=== PATIENT | male | born 1985 | race Caucasian/White ===

== ENCOUNTER 2024-06-25 00:59 | Inpatient (IN) | payer BC, MEDICAID, SELFPAY ==
[2024-06-25] VITALS (90 sets, daily range): BP systolic 114–190; BP diastolic 81–132; PULSE 81–98; RESP 11–45; TEMP 36.5–36.7; O2SAT 90–100; BMI 30.8; BMI 30.3
--- OUTSIDE RECORDS SUMMARY | 2024-06-25 01:02 | XMS_ITS | Clinical Summary ---
Author Organization [facility] Address [address] [facility] [address] [place] [address] Phone Care Team Providers Care Silica Filter Operator Name Role Phone Unavailable Primary Care Provider Unavailabl e Allergies No known active allergies Medications diphenhydrAMINE (BENADRYL) 25 mg Oral tablet Take 50 mg by mouth every 6 hours as needed. Active amoxicillin (AMOXIL) 250 mg Oral capsule Take 250 mg by mouth 2 times daily. 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 Gender Identity Not on file Sexual Orientation Not on file Last Filed Vital Signs Vital Sign Reading Time Taken Comments Blood Pressure 194/106 11/09/2011 6:41 PM CDT Pulse 110 11/09/2011 6:41 PM CDT Temperature 36.4 ??C (97.5 ??F) 11/09/2011 6:33 PM CD T Respiratory Rate 20 11/09/2011 6:41 PM CDT Oxygen Saturation 98% 11/09/2011 6:41 PM CDT Inhaled Oxygen Concentration - - Weight 122.5 kg (270 lb) 11/09/2011 6:33 PM CDT Height 193 cm (6' 4 ) 11/09/2011 6:33 PM CDT Body Mass Index 32.87 11/09/2011 6:33 PM CDT Plan of Treatment Health Maintenance Due Date Last Done Comments DTAP/TDAP/TD VACCINES (1 - Tdap) 07/12/2002 HEPATITIS B VACCINES (1 of 3 - 19+ 3-dose series) 07/12/2002 INFLUENZA VACCINE (#1) 2023 HPV VACCINES Aged Out No longer eligi ble based on patient's age to complete this topic PNEUMOCOCCAL VACCINE 0-64 YEARS Aged Out No longer eligible based on patient's age to complete this topic
--- OUTSIDE RECORDS SUMMARY | 2024-06-25 01:02 | XMS_ITS | Encounter Summary ---
Author Organization [facility] Address [address] [place] [address] Care Team Providers Care Network Systems Operator Name Role Phone Unavailable Primary Care Provider Unavailabl e Encounter Details Date Type Department Care Team (Latest Contact Info) Description 03/20/1998 Outpatient Historical [facility] Family Medicine [place] [address] [facility] [address] [place] [address] Dunia Varghese NO ADDRESS ON FILE Other and unspecified noninfectious gastroenteritis and colitis(558.9) (Primary Dx) Social History Tobacco Use Types Packs/Day Years Used Date Smoking Tobacco: Never Assessed Sex and Gender Information Value Date Recorded Sex Assigned at Not on file 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
--- OUTSIDE RECORDS SUMMARY | 2024-06-25 01:02 | XMS_ITS | Encounter Summary ---
Author Organization [facility] Address [address] [place] [address] Care Team Providers Care Reconciliation Clerk Name Role Phone Unavailable Primary Care Provider Unavailabl e Encounter Details Date Type Department Care Team (Latest Contact Info) Description 10/03/[address] 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
--- OUTSIDE RECORDS SUMMARY | 2024-06-25 01:02 | XMS_ITS | Encounter Summary ---
Author Organization [facility] Address [address] [place] [address] Care Team Providers Care Trim Mounter Name Role Phone Unavailable Primary Care Provider Unavailabl e Encounter Details Date Type Department Care Team (Latest Contact Info) Description 10/14/2000 Outpatient Historical [facility] Family Medicine- [address] [place] [address] Ruperto Tavares, NO ADDRESS ON FILE Acute sinusitis, unspecified (Primary Dx) Social History Tobacco Use Types Packs/Day Years Used Date Smoking Tobacco: Never Assessed Sex and Gender Information Value Date Recorded Sex Assigned at Not on file 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
--- OUTSIDE RECORDS SUMMARY | 2024-06-25 01:02 | XMS_ITS | Continuity of Care Document ---
Author Organization [facility] Address [address] [place] [address] Phone Care Team Providers Care Investigator Cash Shortage Name Role Phone Lobo Mora MD Unavailable Unavailable Allergies, Adverse Reactions, Alerts Substance Reaction Status Criticality No Known Allergies Active No Inform ation Medications Medication Instructions Dosage Effective Dates (start - stop) Status Comments nifedipine ER 30 mg tablet,extended release take 1 tablet by oral route every day 30 MG - Active meloxicam 7.5 mg tablet take 1 tablet by oral route every day with food - Active pantoprazole 40 mg tablet,delayed release Take 1 tablet by mouth every day - Active gabapentin 800 mg tablet take 1 tablet by oral route 2 times every day 800 MG - Active Zyrtec 10 mg tablet Take 1 tablet by mouth every day as needed - Active montelukast 10 mg tablet take 1 tablet by oral route every day in the evening 10 MG - Active Nasacort 55 mcg nasal spray aerosol Inhale 2 sprays in each nostril every day - Active clobetasol 0.05 % topical cream Apply 2 times every day a thin layer to the affected area(s) - Active MINERIN CREME Apply a thin layer to the affected area(s) 3 times every day Not Available - Active Procedures Procedure Date X-RAY EXAM CHEST 2 VIEWS Rad Exam, Hip, Unilat W/pelvis 2-3 Views X-RAY EXAM, SPINE, LUMBOSACRAL, MIN 4 EWS OFFICE OUTPT EST 25 MIN 1ST COMPRE PREV MED E/M NEW PT 18-39 Mar Alcohol and/or drug screening 0 Urinalysis, Auto, w/o Scope HEMOGLOBIN; GLYCOSYLATED (A1C) 20 Advance Directives Directive Yes / No Effective Date File Name No Information Encounters Encounter Description Practice Location Reason(s) For Visit Diagnoses Date Provider Providers Copied on Encounter [facility], [address], [place], [place], [id number] , tel: [phone] [facility] No Information 1 Morgan Diamond. [address], [place], [place], [address], . tel:[phone] [facility], [address], [place], [place], [address] , tel: [phone] [facility] No Information 1 Morgan Diamond. [address], [place], [place], [address], . tel:[phone] Referring Provider: Lobo Mora, [address], [place], [address] . tel:[phone] OFFICE OUTPT EST 25 MIN [facility], [address], [place], [place], [address] , tel: [phone] [facility] hypertension (chief complaint) Body mass index (BMI) 36.0-36.9, adultHypertens ionRadiculopat hy, lumbar regionPain in left hipChronic pain syndrome 1 Morgan Diamond. [address], [place], [place], [address], . tel:[phone] [facility], [address], [place], [place], [address] , tel: [phone] [facility] No Information 1 Ira Sanchez. [address], [place], [place], [address], . tel:[phone] 1ST COMPRE PREV MED E/M NEW PT 1839 [facility], [address], [place], [place], [address] , [place] tel: [phone] [facility] est care (chief complaint) Body mass index (BMI) 38.0-38.9, adultEncntr for general adult medical exam w/o abnormal findingsTobacc o abuse counselingAtop ic dermatitisHype rtensionLow back painChronic rhinitisOther stimulant abuse, in remissionEncou nter for screening for other disorder 0 Ira Sanchez. [address], [place], [place], [address], [place]. tel:[phone] Referring Provider: Daniel miller, [address], [place], [address] . tel:[phone] Family History Family Member Type Diagnosis Age At Onset No Information Payers Payer name Insurance type Covered constitution party ID Authoriza tion(s) No Information Social History Type Description Quantity Date Captured Comments Alcohol Use Details Unknown Caffeine Use Details Unknown Tobacco Use Status Smoking Status No Information Sex Male Sexual Orientation Straight or heterosexual Mar Gender Identity Male Chief Complaint And Reason For Visit No Information Reason For Referral Reason For Referral No Information Plan Of Treatment Date Type Action Status Goal Lifestyle educat ion regarding diet completed Future Order: Radiology Order Ch est: 2 Views PA, Lat ([id number]), Ordered on: Ordered Future Order: Radiology Order L- Spine; Complete (4-5) ([id number]), Ordered on: Ordered Future Order: Radiology Order Hi p: Unilateral 2-3 Views ([id number]), Ordered on: Ordered Nutrition Recommendation Nutrition therap y completed History Of Present Illness Encounter Date Complaint History Of Prese nt Illness hypertension The HTN started in 2000. The symptoms began 20 years ago. The severity has been described as being 4. The symptoms are/last 20 Years. It is currently stable. Risk factors include male gender, obesity and smoking. Pertinent negatives include chest pain, dyspnea, irregular heartbeat/palpitations, nausea and vomiting. hypertension (comments) PMH--all ergiesstates coughs /tickling in the throatlisinopril --nasal congestion/coughing??PMH--eczema?--left hip pain for a time x 10 years--needs xraylow back pain--gabpentin x 3 years for painPMH--no surgery--ALLERGIES deniesSXHX tobacco/ no etoh quit met est care 34 yo M at [facility] here to est caremedical/surgical:GERDEczemaallergic rhinitischronic LBPHypertensionmedications:gabapentin Vistaril Singulair ZyrtecTriamcinolone nasalTriamcinolone ointmentLisinopril 20mg allergies:NKDAfamily hx:dad - diabetes, prostate cancermom - HBPsocial hx:social smoking insufflationnever IVDU Functional Status Date Functional Assessmen t No Information Instructions Date Instruction Additional Infor jennifer Lifestyle education regarding di et Related to Body mass index [BMI] 36.0-36.9, adult Clobetasol as direct edEucerin to hydrate skinZyrtec for allergies and eczema Related to Atopic dermatitis Lisinopril renewed Related to Hy pertension Gabapentin renewed Related to Lo w back pain Nasacort, zyrtec Related to 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
--- OUTSIDE RECORDS SUMMARY | 2024-06-25 01:02 | XMS_ITS | Encounter Summary ---
Author Organization [facility] Address [address] [place] [address] Care Team Providers Care Cellar Hand Name Role Phone Unavailable Primary Care Provider Unavailabl e Encounter Details Date Type Department Care Team (Latest Contact Info) Description 12/31/1998 Outpatient Historical [facility]- [address] [place] [address] Dunia Varghese NO ADDRESS ON FILE Abnormal weight gain (Primary Dx); Other and unspecified noninfectious gastroenteritis and colitis(558.9) Social History Tobacco Use Types Packs/Day Years Used Date Smoking Tobacco: Never Assessed Sex and Gender Information Value Date Recorded Sex Assigned at Not on file 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
--- OUTSIDE RECORDS SUMMARY | 2024-06-25 01:02 | XMS_ITS | Encounter Summary ---
Author Organization [facility] Address [address] [place] [address] Care Team Providers Care Assault Amphibious Vehicle Crewman Name Role Phone Unavailable Primary Care Provider Unavailabl e Encounter Details Date Type Department Care Team (Latest Contact Info) Description 05/21/2002 Outpatient Historical [facility] Medicine- [address] [id number] Lalit Anderson MD [address] [phone] ACUTE BRONCHITIS (Primary Dx) Social History Tobacco Use Types Packs/Day Years Used Date Smoking Tobacco: Never Assessed Sex and Gender Information Value Date Recorded Sex Assigned at Not on file 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
--- OUTSIDE RECORDS SUMMARY | 2024-06-25 01:02 | XMS_ITS | Encounter Summary ---
Author Organization [facility] Address [address] [place] [address] Care Team Providers Care Oncology Physician Assistant Name Role Phone Unavailable Primary Care Provider Unavailabl e Encounter Details Date Type Department Care Team (Latest Contact Info) Description 05/30/1998 Outpatient Historical [facility] [address] [facility] [address] [place] [address] Ruperto Tavares, DO NO ADDRESS ON FILE Pain in joint, lower leg (Primary Dx) Social History Tobacco Use Types Packs/Day Years Used Date Smoking Tobacco: Never Assessed Sex and Gender Information Value Date Recorded Sex Assigned at Not on file 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
--- OUTSIDE RECORDS SUMMARY | 2024-06-25 01:02 | XMS_ITS | Encounter Summary ---
Author Organization [facility] Address [address] [place] [address] Care Team Providers Care Drawer In Jacquard Loom Name Role Phone Unavailable Primary Care Provider Unavailabl e Encounter Details Date Type Department Care Team (Latest Contact Info) Description 09/06/2001 Outpatient Historical [facility] Family Medicine- [address] [place] [address] Alis Stewart MD NO ADDRESS ON FILE ACUTE PHARYNGITIS (Primary Dx); CHRONIC SINUSITIS NOS; OTITIS MEDIA NOS Social History Tobacco Use Types Packs/Day Years Used Date Smoking Tobacco: Never Assessed Sex and Gender Information Value Date Recorded Sex Assigned at Not on file 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
--- OUTSIDE RECORDS SUMMARY | 2024-06-25 01:02 | XMS_ITS | Encounter Summary ---
Author Organization [facility] Address [address] [place] [address] Care Team Providers Care Status Controller Name Role Phone Unavailable Primary Care Provider Unavailabl e Encounter Details Date Type Department Care Team (Latest Contact Info) Description 03/20/2004 Outpatient Historical [facility] [address] [place] [address] Tash Jefferson, CHRONIC DISEASE MANAGER [address] [place] [address] ACUTE SINUSITIS NOS (Primary Dx) Social History Tobacco Use Types Packs/Day Years Used Date Smoking Tobacco: Never Assessed Sex and Gender Information Value Date Recorded Sex Assigned at Not on file 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
--- NOTE | 2024-06-25 01:21 | XRR_ITS ---
PROCEDURE INFORMATION: Exam: XR Chest Exam date and time: 06/25/2024 1:25 AM Age: 38 years old Clinical indication: Dyspnea and shortness of breath; SOB with dyspnea. On bipap. History of chf. TECHNIQUE: Imaging protocol: Radiologic exam of the chest. Views: 1 view. COMPARISON: No relevant prior studies available. FINDINGS: Lungs: Focal infiltrate within the bilateral lower lobes and within the inferior aspect of the right upper lobe. Partial silhouetting of the bilateral hemidiaphragms. Pleural spaces: Unremarkable. No pleural effusion. No pneumothorax. Heart/Mediastinum: Heart normal or upper normal in size when accounting for portable technique. Bones/joints: Unremarkable. XR/XR chest 1V portable [id number] IMPRESSION: Multifocal pneumonia favored over CHF.
--- NOTE | 2024-06-25 01:21 | USCV_ITS ---
Yaron Osborn Age: 38 Gender: M : 1985 Exam Date: 06/25/2024 10:03 Ordering Phys: Edson Fonseca MD Technologist: Exam Location: [facility] Indication: CHF BP: 146 / 1 HR: 90 Rhythm: Sinus Technical Quality: Adequate MEASUREMENTS (Male / Female) Normal Values 2D ECHO LV Diastolic Diameter PLAX 5.9 cm 4.2 - 5.9 / 3.9 - 5.3 cm IVS Diastolic Thickness 1.7 cm 0.6 - 1.0 / 0.6 - 0.9 cm IVS Systolic Thickness 2.1 cm LVPW Diastolic Thickness 1.8 cm 0.6 - 1.0 / 0.6 - 0.9 cm LVPW Systolic Thickness 2.1 cm LVOT Diameter 2.2 cm LV Ejection Fraction 2D Teich 39.8 % LV Ejection Fraction MOD 4C 34.6 % LV Ejection Fraction MOD 2C 53.6 % LV Ejection Fraction 2C AL 54.1 % LA Diameter 4.8 cm RA Systolic Volume 4C AL 137.6 ml RA Systolic Volume 4C MOD 120.8 ml Aorta at Sinotubular Diameter 2.9 cm M-MODE LA Ao Ratio MM 1.6 AV Cusp Separation MM 2.1 cm DOPPLER AV Peak Velocity 112.0 cm/s LVOT Peak Velocity 77.0 cm/s AV Area Cont Eq vti 3.0 cm squared AV Area Cont Eq pk 2.7 cm squared MV Peak Velocity 109.0 cm/s TR Peak Velocity 264.0 cm/s TR Peak Gradient 27.9 mmHg TV Peak E Velocity 99.0 cm/s PV Peak Velocity 91.0 cm/s FINDINGS Left Ventricle Moderately increased left ventricular cavity size. Severely decreased left ventricular systolic function. Left ventricular ejection fraction is estimated at 35 %. Global left ventricular hypokinesis. Right Ventricle The right ventricle is normal in size and function. Right Atrium Moderately increased right atrial size. Left Atrium Moderately increased left atrial size. Mitral Valve Mildly thickened mitral valve. No mitral valve stenosis. Moderate mitral valve regurgitation. Aortic Valve Mild aortic valve calcification. No aortic valve stenosis. Trace aortic valve regurgitation. Tricuspid Valve Moderate tricuspid valve regurgitation. Pulmonic Valve Structurally normal pulmonic valve without significant stenosis. There is no pulmonic regurgitation. Pericardium Normal pericardium without effusion. Aorta Normal ascending aorta dimension. IVC Inferior vena cava not visualized. CONCLUSIONS Moderately increased left ventricular cavity size. Severely decreased left ventricular systolic function. Left ventricular ejection fraction is estimated at 35 %. Global left ventricular hypokinesis. Moderately increased right atrial size. Moderately increased left atrial size. Mildly thickened mitral valve. No mitral valve stenosis. Moderate mitral valve regurgitation. Mild aortic valve calcification. No aortic valve stenosis. Trace aortic valve regurgitation. Moderate tricuspid valve regurgitation. There is no pericardial effusion. Alaina Barrios MD (Electronically Signed) Final Date: 25 June 2024 20:17 S
--- NOTE | 2024-06-25 01:22 | P.HP_ITS ---
Providers/Chief Complaint Admitting Physician: Edsno Fonseca MD Primary Care Provider: Arun Tracy Chief Complaint: Chf Hypertension Emergency History of Present Illness Yaron Osborn is a 38 year old male with a past medical history significant for hypertension who presented to an outside emergency department complaining of shortness of breath x 2 weeks. Patient reports he was in his usual state of health until about 2 weeks ago when he developed upper respiratory infection/sinusitis. He states at that time he figured the symptoms to be transient passes atypically do. He states since that time he has noticed progressive swelling of his lower extremities, abdominal distention, worsening shortness of breath, orthopnea with inability to lay flat, and paroxysmal nocturnal dyspnea. Exertion worsens symptoms. Rest improves. He denies any prior history of similar symptoms. He denies any past history of congestive heart failure. States his only medical conditions been hypertension for which he takes lisinopril 40 mg daily. He does note his father had a problem with one of his cardiac valves that required replacement. He also notes that his mother had a history of heart trouble as well as hypertension. He was found to be markedly hypertensive and tachycardic. Reported blood pressures around 230s over 120 mmHg and heart rate around 150. Workup at the outside emergency department revealed a proBNP elevated at 19,957 pg/mL (upper limit of normal 125 pg/mL). Troponin T was mildly elevated to 55 ng/L. Chest x-ray showed findings consistent with congestive heart failure with pulmonary edema. CT abdomen pelvis with contrast showed moderate ascites, generalized anasarca, 2.2 cm stellate density in the right lung and small right pleural effusion. He was started on IV Lasix and labetalol drip. Upon presentation to [facility] ICU, patient is awake and alert. Blood pressure has since improved from the outside hospital. He is no longer on any drips. Discussed plan of care and patient is in agreement. Review of Systems Narrative: A complete review of systems was obtained and is negative except as stated in HPI. Medications/Allergies Allergies Allergy/AdvReac Type Severity Reaction Status Date / Time No Known Allergies Allergy Verified 06/25/24 01:07 PFSH Acute PFSH: Medical History Alcohol use disorder Alcohol use disorder Tobacco use disorder Hypertension Surgical History No pertinent past surgical history Family History Father Valvular heart disease Mother Heart disease Hypertension Social History Smoking and tobacco/nicotine status: current every day tobacco/nicotine user Quit status (tobacco/nicotine): has tried quititng Alcohol intake: current Substance/Drug Use: never Vitals/I&O/Wt Weight last 48 hrs Weight 112 kg Physical Exam Narrative: General: Patient is awake and alert. Pleasant. Conversational. Head: Normocephalic. Atraumatic. EOM intact. Neck: Slightly elevated JVD. Cardiovascular: RRR. No gallops. No murmurs. 1-2+ bilateral lower extremity edema right worse than left. Lungs: Breath sounds are slightly diminished bilateral bases. There is very faint dependent crackle. On room air. No respiratory distress. Skin: No jaundice. No rashes. Abdomen: Normal bowel sounds, abdomen soft and nontender. Genito Urinary: Genital exam not performed since complaints not related. Rectal: Rectal exam not performed since no symptoms indicated blood loss. Extremities: No cyanosis or clubbing. Musculoskeletal: No swollen or erythematous joints. Neurological: Moves all 4 extremities. No myoclonus. A&P Assessment and plan (1) Elevated brain natriuretic peptide (BNP) level: Suspected congestive heart failure with anasarca, ascites, pleural effusion NT proBNP markedly elevated in the setting of pulmonary edema and fluid overload consistent with acute heart failure Complete echocardiogram ordered to further delineate type of heart failure Patient had transient infectious symptoms 2 weeks ago, query pericarditis, myopericarditis, etc Will likely need cardiology evaluation Received IV Lasix prior to transfer, he will likely need ongoing diuresis Continuous telemetry monitoring Strict I's and O's Daily weights (2) Elevated troponin: Troponin mildly elevated at outside hospital Repeat troponin with series Suspect related to troponin leak from congestive heart failure Continuous telemetry monitoring Echo as above (3) Pulmonary edema: Flash pulmonary edema secondary to hypertension / chf Symptoms seem improved from report from outside hospital Repeat chest x-ray (4) Tobacco use disorder: Patient encouraged to consider smoking cessation Nicotine patch ordered (5) Hypertension: Patient takes lisinopril 40 mg daily His blood pressure is currently normal after being treated at the outside hospital Will hold CLARITA inhibitor while awaiting echo Will plan to reinitiate antihypertensives if blood pressure starts to increase today (6) Alcohol use disorder: Patient reports daily beer drinking without history of withdrawal Monitor for evidence of withdrawal and if such exists, will start CIWA Plan DVT prophylaxis: Lovenox CODE STATUS code: Full code PDMP PDMP Reviewed: Not Reviewed Attestations Medical Necessity Statement*: Patient transfers to the intensive care unit from outside emergency department after presenting with shortness of breath, found to have acute pulmonary edema, severe tachycardia, severe hypertension and suspected new congestive heart failu re with expected hospitalization to cross 2 midnights for titration of heart rate medications, titration of blood pressure medications, diuresis, further workup, echo, telemetry and probable cardiology evaluation. Coding Level of Care Code Acute Code for Chg Fwd Diagnoses Elevated brain natriuretic peptide (BNP) level R79.89 Elevated troponin R79.89 Pulmonary edema J81.1 Tobacco use disorder F17.200 Hypertension I10 Alcohol use disorder F10.90
[2024-06-25 01:59] LABS: Basophils # 0.1 10^3/uL (0.0-0.1); Basophils % 1.1 %; Eosinophils # 0.3 10^3/uL (0.0-0.8); Eosinophils % 3.8 %; Hematocrit 39.3 % (37-53); Lymphocytes # 1.7 10^3/uL (0.8-4.8); Lymphocytes % 21.3 %; Mean Corpuscular HGB Conc 31.8 g/dL (30-55); Mean Corpuscular Hemoglobin 30.7 pg (27-33); Mean Corpuscular Volume 96.6 fl (82-101); Mean Platelet Volume 10.4 fL (7.4-10.4); Monocytes # 0.8 10^3/uL (0.2-0.9); Monocytes % 10.2 %; Neutrophils # 5.07 10^3/uL (1.8-7.7); Neutrophils % 63.5 %; Nucleated Red Blood Cells % 0 %; Platelet Count 257 10^3/cmm (157-399); Red Blood Count 4.07 10^6/uL (3.85-5.65); Red Cell Distribution Width 13.6 % (12.1-15.1); White Blood Count 7.98 10^3/uL (3.29-11.43)
[2024-06-25 02:20] LABS: Troponin T (5th) Once 69 ng/L (0-15)
[2024-06-25 02:26] LABS: NT Pro B Type Natriuretic Pept 21651 pg/mL (0-125); Procalcitonin 0.08 ng/mL (0-0.5); Thyroid Stimulating Hormone 4.13 uIU/mL (0.27-4.20)
[2024-06-25 02:38] LABS: Alanine Aminotransferase 42 U/L (0-41); Albumin Level 3.3 g/dL (3.5-5.2); Alkaline Phosphatase 81 U/L (40-130); Anion Gap 15.9 (5-19); Aspartate Amino Transferase 18 U/L (0-40); Blood Urea Nitrogen 16 mg/dL (6-20); C Reactive Protein 4.8 mg/L (0.0-4.9); Calcium 8.6 mg/dL (8.5-10.5); Carbon Dioxide 25 mmol/L (22-29); Chloride 99 mmol/L (98-107); Creatinine Clr Calc Pharmacy 110.5324; Globulin 2.5 g/dL (1.3-4.6); Glomerular Filtration Rate 67.1 mL/min (90-130); Glucose 82 mg/dL (65-115); Magnesium 2.1 mg/dL (1.7-2.3); Osmolality Calculated 282 mOsm/kg (285-295); Phosphorus 4.1 mg/dL (2.5-4.5); Potassium 3.9 mmol/L (3.5-5.1); Sodium 136 mmol/L (136-145); Total Bilirubin 0.8 mg/dL (0.15-1.2); Total Protein 5.8 g/dL (6.6-8.7)
[2024-06-25 03:01] LABS: Bilirubin Urine Negative (Negative); Blood Urine Negative (Negative); Glucose Urine UA Negative (Normal); Ketones Urine Negative (Negative); Leukocyte Esterase Urine Negative (Negative); Nitrate Urine Negative (Negative); Protein Urine 2+ (Negative); Urine Appearance Clear (CLEAR); Urine Color Yellow (Yellow); pH Urine 6.5 (5-7)
[2024-06-25 03:06] LABS: Add Urine Microscopic? YES; Bacteria Urine None Seen /hpf; Hyaline Casts Urine 3.71 /lpf; RBC Urine 0-2 /hpf (0-2); Squamous Epithelial Cell Urine 0-5 /hpf (0-5); WBC Urine 0-5 /hpf (0-5)
[2024-06-25 03:09] LABS: Amphetamines Screen Urine Negative (Negative); Barbiturates Screen Urine Negative (Negative); Benzodiazepines Screen Urine Negative (Negative); Cocaine Screen Urine Negative (Negative); Opiate Screen Urine Negative (Negative); PCP Screen Urine Negative (Negative); THC Screen Urine Negative (Negative)
[2024-06-25 03:14] LABS: Specific Gravity, Urine 1.031 (1.005-1.030)
[2024-06-25] MEDS: lisinopril 20 mg Tablet PO ×2 (05:06→17:15)
[2024-06-25] MEDS: FUROsemide 10 mg/mL SDV 4mL 40 MG IVP ×2 (05:06→17:15)
[2024-06-25] MEDS: nicotine 21 mg Patch 1 PATCH TRANSDERMA (08:09)
[2024-06-25] MEDS: metoprolol tartrate 25 mg Tablet PO ×2 (08:42→20:03)
--- NOTE | 2024-06-25 08:54 | ECG_ITS ---
[facility] Test Date: 2024-06-25 Pat Name: Yaron Osborn Department: Room: [facility] Gender: Male [place]: : 1985 Requested By: Jun Izaguirre Order Number: [id number] Torsten MD: Silvestre Wilkerson M.D. Measurements Intervals [place] Rate: 88 P: 39 WI: 196 QRS: 38 QRSD: 99 T: 54 QT: 399 QTc: 484 Interpretive Statements SINUS RHYTHM LEFT ATRIAL ENLARGEMENT [-0.15mV P-WAVE IN V1/V2] No previous ECG available for comparison Electronically Signed On 06-25-2024 11:21:30 [employer] by Silvestre Wilkerson M.D. [email or web address]
[2024-06-25 11:36] LABS: Troponin(5th) Baseline 63 ng/L (0-15)
[2024-06-25] MEDS: thiamine 100 mg/mL 2mL SDV IM (13:09)
[2024-06-25] MEDS: acetaminophen 325 mg Tablet 650 MG PO (13:12)
[2024-06-25 13:36] LABS: Troponin 5 2HR 61.52 ng/L (0-15)
[2024-06-25 13:37] LABS: Troponin 5 2HR Delta -1.48 ABS# (0-10)
[2024-06-25] MEDS: morphine 4 mg/mL SDV 1 mL 2 MG IVP (14:06)
--- NOTE | 2024-06-25 16:15 | P.PN_ITS ---
Subjective 2 Subjective: Patient was seen this morning, he does report a family history of CHF and CAD he reports that his father had a valve replacement and 10 years after it was replaced, does report alcoholism, daily alcohol use, up to a pack of beer a day, does report methamphetamine use the last use was 3 weeks ago reports shortness of breath, shortness of breath with exertion orthopnea paroxysmal nocturnal dyspnea, no chest pain Vitals/I&O/Wt Last Vital Signs Temp 98.0 F 06/25/24 08:00 Pulse 89 06/25/24 16:00 Resp 25 H 06/25/24 16:00 BP 159/122 06/25/24 16:00 Pulse Ox 95 06/25/24 16:00 O2 Del Method Room Air 06/25/24 16:00 06/25/24 06/25/24 06/25/24 06:59 14:59 22:59 Intake Total 360 / 360 480 / 480 Output Total 1200 / 1200 1450 / 1450 Balance -840 / -840 -970 / -970 Weight last 48 hrs Weight 110 kg Weight 110 kg Weight 112 kg Physical Exam 2 Const: COMMON NORMALS: no acute distress and patient oriented x3 Resp: COMMON NORMALS: normal respiratory effort, No retractions and No use of accessory muscles AUSCULTATION: crackles and wheezes Cardio: COMMON NORMALS: regular rate, regular rhythm, S1 normal heart sound present and S2 normal heart sound present RATE: regular rate RHYTHM: r egular rhythm HEART SOUNDS: S1 normal heart sound present and S2 normal heart sound present GI: COMMON NORMALS: Normal to inspection, nondistended, normoactive bowel sounds present and non-tender Extremity: COMMON NORMALS: no pedal edema Neuro: COMMON NORMALS: patient oriented x3 and CN's II-XII intact bilaterally Psych: COMMON NORMALS: mental status grossly normal Data 06/25/24 01:39 06/25/24 01:39 Micro: Microbiology 06/25/24 05:00 Gram Stain - Final Sputum - Expectorated Sputum 06/25/24 02:30 Bacterial Antigens - Final Urine,Voided A&P Assessment and plan (1) Elevated brain natriuretic peptide (BNP) level: Concerning for new onset heart failure Etiology unclear History of alcoholism History of methamphetamine abuse With anasarca, ascites, pleural effusions, elevated BNP Cardiac echo ordered Lasix 40 mg IV Monitor creatinine monitor potassium (2) Elevated troponin: Aspirin, statin Cardiology consulted (3) Pulmonary edema: Secondary to new onset CHF (4) Tobacco use disorder: Patient encouraged to consider smoking cessation Nicotine patch ordered (5) Hypertension: Lisinopril 20 twice daily Metoprolol 25 twice daily (6) Alcohol use disorder: CIWA protocol (7) Hypertensive urgency: Plan DVT prophylaxis: Lovenox CODE STATUS code: Full code PDMP PDMP Reviewed: Not Reviewed Attestations 2 Medical Necessity Statement*: Patient requires hospitalization for new onset heart failure, requiring IV diuresis, cardiology consultation Diagnoses Elevated brain natriuretic peptide (BNP) level R79.89 Elevated troponin R79.89 Pulmonary edema J81.1 Tobacco use disorder F17.200 Hypertension I10 Alcohol use disorder F10.90 Hypertensive urgency I16.0
--- NOTE | 2024-06-25 16:50 | P.CONIM_ITS ---
<Statement entered by Alaina Barrios MD - 06/25/24 19:18> Patient was evaluated and cared for in conjunction with an advanced practice practitioner. I personally examined the patient and reviewed the chart and all pertinent data including imaging, telemetry, and laboratory results. I discussed the patient in detail with the advanced practice practitioner. Please see their note for complete H&P testing result and agreed upon plan of care for the patient. 38-year-old male past medical history significant for continuous tobacco abuse, alcohol use on daily basis for the past few weeks has been noticing worsening of shortness of breath later developed PND orthopnea increased abdominal girth and noted to have systolic blood pressure around 190 therefore decided to go to outside hospital where he was noted to have possible ascites and pulmonary edema on x-ray and CT scan. There is reason patient has been transferred to [facility]. Cardiac markers were also elevated. Denies any chest pain categorically. GENERAL: Patient is alert, awake and oriented x3. HEART: Regular S1 and S2. No murmur, rub or gallop. LUNGS: Inspiratory crackles bilaterally. Abdomen: Mildly distended but soft nontender CENTRAL NERVOUS SYSTEM: Grossly nonfocal. EXTREMITIES: Lower extremities with trace edema bilaterally. Assessment and plan New onset of heart failure unspecified Ascites: May need to rule out liver cirrhosis could be cardiac Hypertension uncontrolled Tobacco abuse Alcohol abuse IV Lasix 40 mg twice daily with goal of 1 to 1.5 L negative per day and electrolyte replacement Will optimize medication to control the blood pressure. Echocardiogram to assess LV function Once euvolemic we will proceed with ischemic workup left heart cath versus stress test depending upon echo result Liver ultrasound to rule out cirrhosis Further plan will be devised as per progress note patient Providers/Reason For Consult 2 Consulting Physician/Specialty*: Alaina Barrios MD Reason for Consult*: New onset congestive heart failure Requesting Physician: Dr. Izaguirre Attending Physician: Jun Izaguirre MD Primary Care Provider: Sabra Arriola History of Present Illness History of Present Illness Yaron Osborn is a 38 year old male who is a transfer from [facility] for CHF exacerbation. Patient states he does not have much of a health history but does not go to the doctor. He does smoke every day. He does have a history of alcohol use. He stated about 1 month ago he started having some what he thought was respiratory symptoms. He treated himself with [id number] cold medications and it did not get better. He states that he also developed swelling in his lower extremities. He also noticed swelling in his abdomen as well. Chest x-ray here showed multifocal pneumonia favored over CHF. Heart size was upper normal. He also complained of orthopnea and shortness of breath on exertion. Denied any chest pain at that time or history of chest pain. He states he does have a father with a history of possible coronary artery disease. At the other facility he was put on a Lasix drip and labetalol drip for elevated blood pressure and CHF exacerbation. proBNP currently is 21,651. Troponin slightly elevated at 63?61.52. EKG with no acute ST or T wave abnormalities however there are Q waves seen in septal leads. Current creatinine is stable at 1.2. He has had -181 0 over 24 hours and has received Lasix IV 40 mg. He had a CT abdomen pelvis with contrast at another facility that showed moderate ascites generalized anasarca and a satellite density 2.2 cm in the right lung with small right pleural effusion. Currently blood pressure is 159/122 heart rate 89. He denies any chest pain at this time. Still reports a slight dry cough and slight orthopnea but it is much improved. Review of Systems 2 Narrative: Consitutional: denies fever, chills, body aches, or changes in appetite, denies abnormal weight loss Eyes: Denies changes in vision Card: Denies chest pain, palpitations, irregular heart rhythm, edema, syncope, shortness of breath, orthopnea, leg pain with exertion Resp: Reports shortness of breath on exertion, reports slight orthopnea but improved, denies hemoptysis, denies cough GI: denies abdominal pain, denies nausea or voimting, denies blood in stool : denies blood in urine, denies dysuria Musc: Denies extremity pain, denies limited range of motion or recent injury Skin: Denies rash, lesions, or wounds, denies changes to skin color Neuro: Denies nubmness in extremities, h/a, s/s of stroke [place]be: Denies easy bruiding/bleeding Medications/Allergies Home Medications ?Medication ?Instructions ?Recorded ?Confirmed ?Last Taken ?Type lisinopril 20 mg tablet 40 mg PO DAILY 06/25/2406/0906/24/24 History Allergies Allergy/AdvReac Type Severity Reaction Status Date / Time No Known Allergies Allergy Verified 06/25/24 01:07 Current Medications Generic Name Dose Route Start Last Admin Trade Name Gareth PRN Reason Stop Dose Admin Acetaminophen 650 mg 06/25/24 01:16 06/25/24 13:12 Acetaminophen 325 Mg Tablet PO 650 mg Q6H PRN Administration Mild/Mod Pain Or Temp >/= 101 Metoprolol Tartrate 25 mg 06/25/24 09:00 06/25/24 08:42 Metoprolol Tartrate 25 Mg Tablet PO 25 mg BID@0900,2100 THEODORE Administration Morphine Sulfate 2 mg 06/25/24 13:16 06/25/24 14:06 Morphine 4 Mg/Ml Sdv 1 Ml IVP 2 mg Q4H PRN Administration SEVERE PAIN Nicotine 1 patch 06/25/24 09:00 06/25/24 08:09 Nicotine 21 Mg Patch TRANSDERMA 1 patch DAILY THEODORE Administration PFSH Acute 2 PFSH: Medical History Alcohol use disorder Alcohol use disorder Tobacco use disorder Hypertension Surgical History No pertinent past surgical history Family History Father Valvular heart disease Mother Heart disease Hypertension Social History Smoking and tobacco/nicotine status: current every day tobacco/nicotine user Quit status (tobacco/nicotine): has tried quititng Alcohol intake: current Substance/Drug Use: never Vitals/I&O/Wt Last Vital Signs Temp 98.0 F 06/25/24 08:00 Pulse 89 06/25/24 16:00 Resp 25 H 06/25/24 16:00 BP 159/122 06/25/24 16:00 Pulse Ox 95 06/25/24 16:00 O2 Del Method Room Air 06/25/24 16:00 06/25/24 06/25/24 06/25/24 06:59 14:59 22:59 Intake Total 360 / 360 480 / 480 Output Total 1200 / 1200 1450 / 1450 Balance -840 / -840 -970 / -970 Weight last 48 hrs Weight 242 lb 8.136 oz Weight 242 lb 8.136 oz Weight 246 lb 14.684 oz Physical Exam 2 Narrative: General: No apparent distress, healthy appearing, well nourished HENMT: normoceophalic Neck: No carotid bruit bilaterally Muskuloskeletal: Full ROM Respiratory: Normal respiratory effort, upper lobes are clear but bilateral lower lobes are coarse with a left lower lobe being worse s, no use of accessory muscles Cardio: No JVD, regular rate, regular rhythm, S1 S2 normal, no murmurs, peripheral pulses 2+ radial palpated bilaterally GI: large, slightly distended abdomen Extremities: Full ROM, normal, normal capillary refill, no cyanosis or edema Neuro: Alert and oriented x4, no focal motor deficits Psych: Affect normal, denies suicidal ideation, mental status grossly normal Skin: No rashes or lesions noted, no wounds Data 06/25/24 01:39 06/25/24 01:39 Micro: Microbiology 06/25/24 05:00 Gram Stain - Final Sputum - Expectorated Sputum 06/25/24 02:30 Bacterial Antigens - Final Urine,Voided A&P Assessment and plan (1) Hypertension: (2) Elevated brain natriuretic peptide (BNP) level: (3) Elevated troponin: (4) Hypertensive urgency: (5) Tobacco use disorder: (6) Alcohol use disorder: (7) Pulmonary edema: Plan At this time patient seems to improved from a heart failure standpoint but still has some orthopnea. Recommend starting Lasix 40 twice daily IV. We will add potassium to this as well. Monitor creatinine closely and response to therapy. We will read echo. If his ejection fraction is reduced, he may require cardiac cath in the future but at this time he is still having some slight orthopnea. We will need to diurese him for at least a day or so to prep him for this if necessary. We will start goal-directed medical therapy if indicated. At this time, further recommendations to be made after echocardiogram. Thank you, Dr. Izaguirre, for allowing us to care for this very pleasant gentleman. PDMP PDMP Reviewed: Not Reviewed Coding Level of Care Code Acute Code for Chg Fwd Diagnoses Hypertension I10 Elevated brain natriuretic peptide (BNP) level R79.89 Elevated troponin R79.89 Hypertensive urgency I16.0 Tobacco use disorder F17.200 Alcohol use disorder F10.90 Pulmonary edema J81.1
[2024-06-25 17:00] LABS: Troponin 5 6HR 65.14 ng/L (0-15); Troponin 5 6HR Delta 2.14 ng/L (0-12)
[2024-06-25] MEDS: potassium chloride ER 20 mEq Tablet PO (17:15)
[2024-06-25] MEDS: aspirin 81 mg EC Tablet PO (17:15)
[2024-06-25] MEDS: atorvastatin 40 mg Tablet PO (20:03)
[2024-06-25] MEDS: enoxaparin 40 mg/0.4 mL Syringe SUBCUT (20:03)
[2024-06-25] MEDS: hyDRALAzine 20 mg/mL INJ 1 mL 10 MG IVP (23:01)
[2024-06-26] VITALS (49 sets, daily range): BP systolic 141–183; BP diastolic 85–125; PULSE 87–109; RESP 6–40; TEMP 36.6–37.1; O2SAT 93–100; BMI 29.5
[2024-06-26] MEDS: lisinopril 20 mg Tablet PO ×2 (03:06→17:31)
[2024-06-26] MEDS: FUROsemide 10 mg/mL SDV 4mL 40 MG IVP ×2 (04:04→17:31)
[2024-06-26] MEDS: hyDRALAzine 20 mg/mL INJ 1 mL 10 MG IVP (04:07)
[2024-06-26 04:08] LABS: Basophils # 0.1 10^3/uL (0.0-0.1); Basophils % 1.3 %; Eosinophils # 0.4 10^3/uL (0.0-0.8); Eosinophils % 4.4 %; Hematocrit 39.1 % (37-53); Lymphocytes # 1.9 10^3/uL (0.8-4.8); Lymphocytes % 21.4 %; Mean Corpuscular Hemoglobin 30.3 pg (27-33); Mean Corpuscular Volume 94.9 fl (82-101); Mean Platelet Volume 10.8 fL (7.4-10.4); Monocytes # 0.9 10^3/uL (0.2-0.9); Monocytes % 10.5 %; Neutrophils # 5.42 10^3/uL (1.8-7.7); Neutrophils % 62.1 %; Nucleated Red Blood Cells % 0 %; Platelet Count 249 10^3/cmm (157-399); Red Blood Count 4.12 10^6/uL (3.85-5.65); Red Cell Distribution Width 13.5 % (12.1-15.1); White Blood Count 8.73 10^3/uL (3.29-11.43)
[2024-06-26 04:32] LABS: Alanine Aminotransferase 34 U/L (0-41); Albumin Level 3.3 g/dL (3.5-5.2); Alkaline Phosphatase 79 U/L (40-130); Anion Gap 16.2 (5-19); Aspartate Amino Transferase 18 U/L (0-40); Blood Urea Nitrogen 20 mg/dL (6-20); Calcium 8.7 mg/dL (8.5-10.5); Carbon Dioxide 26 mmol/L (22-29); Chloride 98 mmol/L (98-107); Creatinine Clr Calc Pharmacy 101.1752; Globulin 2.8 g/dL (1.3-4.6); Glomerular Filtration Rate 61.1 mL/min (90-130); Glucose 83 mg/dL (65-115); Osmolality Calculated 284 mOsm/kg (285-295); Potassium 4.2 mmol/L (3.5-5.1); Sodium 136 mmol/L (136-145); Total Bilirubin 0.9 mg/dL (0.15-1.2); Total Protein 6.1 g/dL (6.6-8.7)
[2024-06-26 04:37] LABS: NT Pro B Type Natriuretic Pept 9116 pg/mL (0-125)
[2024-06-26] MEDS: nicotine 21 mg Patch 1 PATCH TRANSDERMA (08:24)
[2024-06-26] MEDS: thiamine 100 mg Tablet PO (08:24)
[2024-06-26] MEDS: folic acid 1 mg Tablet PO (08:24)
[2024-06-26] MEDS: multivitamin therapeutic Tablet 1 TAB PO (08:24)
[2024-06-26] MEDS: aspirin 81 mg EC Tablet PO (08:24)
[2024-06-26] MEDS: potassium chloride ER 20 mEq Tablet PO ×2 (08:24→17:31)
[2024-06-26] MEDS: metoprolol tartrate 25 mg Tablet PO ×2 (08:25→21:07)
--- NOTE | 2024-06-26 13:47 | P.PN_ITS ---
Subjective 2 Subjective: Patient was seen this morning, alert oriented x 3, following all commands, his breathing has improved, he is still unable to completely lie flat, Vitals/I&O/Wt Last Vital Signs Temp 98.8 F 06/26/24 09:00 Pulse 94 06/26/24 12:00 Resp 26 H 06/26/24 12:00 BP 161/109 06/26/24 12:00 Pulse Ox 100 06/26/24 12:00 O2 Del Method Room Air 06/26/24 12:00 06/25/24 06/26/24 06/26/24 22:59 06:59 14:59 Intake Total 960 / 1440 1160 / 1160 Output Total 2875 / 4325 2625 / 6950 3100 / 3100 Balance -1915 / -2885 -2625 / -5510 -1940 / -1940 Weight last 48 hrs Weight 107 kg Weight 107 kg Weight 110 kg Weight 110 kg Weight 112 kg Physical Exam 2 Const: COMMON NORMALS: no acute distress and patient oriented x3 Resp: COMMON NORMALS: normal respiratory effort, No retractions, No use of accessory muscles and clear to auscultation bilaterally AUSCULTATION: clear to auscultation bilaterally Cardio: COMMON NORMALS: regular rate, regular rhythm, S1 normal heart sound present and S2 normal heart sound present RATE: regular rate RHYTHM: r egular rhythm HEART SOUNDS: S1 normal heart sound present and S2 normal heart sound present GI: COMMON NORMALS: Normal to inspection, nondistended, normoactive bowel sounds present and non-tender Extremity: COMMON NORMALS: no pedal edema Neuro: COMMON NORMALS: patient oriented x3 Psych: COMMON NORMALS: mental status grossly normal Data 06/26/24 03:07 06/26/24 03:07 Micro: Microbiology 06/25/24 05:00 Gram Stain - Final Sputum - Expectorated Sputum Sputum Culture - Preliminary 06/25/24 02:30 Bacterial Antigens - Final Urine,Voided A&P Assessment and plan (1) Elevated brain natriuretic peptide (BNP) level: Concerning for new onset heart failure, systolic CHF CONCLUSIONS Moderately increased left ventricular cavity size. Severely decreased left ventricular systolic function. Left ventricular ejection fraction is estimated at 35 %. Global left ventricular hypokinesis. Moderately increased right atrial size. Moderately increased left atrial size. Mildly thickened mitral valve. No mitral valve stenosis. Moderate mitral valve regurgitation. Mild aortic valve calcification. No aortic valve stenosis. Trace aortic valve regurgitation. Moderate tricuspid valve regurgitation. There is no pericardial effusion. Etiology unclear History of alcoholism History of methamphetamine abuse Possible ischemic cardiomyopathy With anasarca, ascites, pleural effusions, elevated BNP Lasix 40 mg IV Monitor creatinine, monitor potassium Cardiology consulted for consideration of possible coronary angiogram (2) Elevated troponin: Aspirin, statin Cardiology consulted (3) Pulmonary edema: Secondary to new onset CHF (4) Tobacco use disorder: Patient encouraged to consider smoking cessation Nicotine patch ordered (5) Hypertension: Lisinopril 20 twice daily Metoprolol 25 twice daily (6) Alcohol use disorder: CIWA protocol (7) Hypertensive urgency: (8) Acute systolic CHF (congestive heart failure): Plan DVT prophylaxis: Lovenox CODE STATUS code: Full code PDMP PDMP Reviewed: Not Reviewed Attestations 2 Medical Necessity Statement*: Patient requires hospitalization for acute systolic CHF requiring IV diuresis, cardiology consultation concern for ischemic cardiomyopathy consideration of cardiac cath Diagnoses Elevated brain natriuretic peptide (BNP) level R79.89 Elevated troponin R79.89 Pulmonary edema J81.1 Tobacco use disorder F17.200 Hypertension I10 Alcohol use disorder F10.90 Hypertensive urgency I16.0 Acute systolic CHF (congestive heart failure) I50.21
--- NOTE | 2024-06-26 14:55 | P.PN_ITS ---
<Statement entered by Bear Patricio M.D - 06/26/24 23:46> Patient was evaluated and cared for in conjunction with an advanced practice practitioner. I personally examined the patient and reviewed the chart and all pertinent data including imaging, telemetry, and laboratory results. I discussed the patient in detail with the advanced practice practitioner. Please see their note for complete progress note, results and agreed upon plan of care for the patient. Patient feeling better. Shortness of breath has improved significantly. GENERAL: Patient is alert and oriented HEART: Regular S1 and S2 LUNGS: Diminished air entry bilaterally EXTREMITIES: Lower extremities with no edema 1) Congestive heart failure 2) Hypertensive urgency 3) Troponin elevation Continue diuresis. Close I and Os. NPO past midnight. If renal function is stable, plan for coronary angigoram in the AM as has significant LV dysfucntion Subjective 2 Subjective: Patient states he is doing much better today. He is -5710 L over 24 hours. Creatinine slightly increased at 1.3. Vitals/I&O/Wt Last Vital Signs Temp 98.8 F 06/26/24 09:00 Pulse 102 H 06/26/24 14:00 Resp 6 L 06/26/24 14:00 BP 144/87 06/26/24 14:00 Pulse Ox 95 06/26/24 14:00 O2 Del Method Room Air 06/26/24 14:00 06/25/24 06/26/24 06/26/24 22:59 06:59 14:59 Intake Total 960 / 1440 1160 / 1160 Output Total 2875 / 4325 2625 / 6950 3100 / 3100 Balance -1915 / -2885 -2625 / -5510 -1940 / -1940 Weight last 48 hrs Weight 235 lb 14.314 oz Weight 235 lb 14.314 oz Weight 242 lb 8.136 oz Weight 242 lb 8.136 oz Weight 246 lb 14.684 oz Physical Exam 2 Narrative: General: No apparent distress, healthy appearing, well nourished HENMT: normoceophalic Neck: No carotid bruit bilaterally Muskuloskeletal: Full ROM Respiratory: Normal respiratory effort, lung [place] clear throughout, no use of accessory muscles Cardio: No JVD, regular rate, regular rhythm, S1 S2 normal, no murmurs, peripheral pulses 2+ radial palpated bilaterally GI: abdomen less distended today Extremities: Full ROM, normal, normal capillary refill, no cyanosis or edema Neuro: Alert and oriented x4, no focal motor deficits Psych: Affect normal, denies suicidal ideation, mental status grossly normal Skin: No rashes or lesions noted, no wounds Data 06/26/24 03:07 06/26/24 03:07 Micro: Microbiology 06/25/24 05:00 Gram Stain - Final Sputum - Expectorated Sputum Sputum Culture - Preliminary 06/25/24 02:30 Bacterial Antigens - Final Urine,Voided A&P Assessment and plan (1) Hypertension: (2) Elevated brain natriuretic peptide (BNP) level: (3) Elevated troponin: (4) Hypertensive urgency: (5) Tobacco use disorder: (6) Alcohol use disorder: (7) Pulmonary edema: Plan At this time patient seems to improved from a heart failure standpoint. Recommend continuing Lasix 40 twice daily IV. Continue to monitor creatinine closely and response to therapy. Echo showed Ef reduced at 35%. We will need to diurese him for at least a day or so to prep him for left heart cath. We will switch him to losartan to bridge for Entresto. Will start goal-directed medical therapy if creatinine allows. PDMP PDMP Reviewed: Not Reviewed Attestations 2 Medical Necessity Statement*: Deferred to primary care. Coding Level of Care Code Acute Code for Chg Fwd Diagnoses Hypertension I10 Elevated brain natriuretic peptide (BNP) level R79.89 Elevated troponin R79.89 Hypertensive urgency I16.0 Tobacco use disorder F17.200 Alcohol use disorder F10.90 Pulmonary edema J81.1
--- NOTE | 2024-06-26 19:23 | PC.NURSE ---
Spoke to Abdirahman RUIZ lasix at 1600 was pulled from machine not scanned but given. 1600 one time dose.
[2024-06-26] MEDS: atorvastatin 40 mg Tablet PO (21:06)
[2024-06-26] MEDS: enoxaparin 40 mg/0.4 mL Syringe SUBCUT (21:07)
[2024-06-27] VITALS (91 sets, daily range): BP systolic 145–199; BP diastolic 88–140; PULSE 69–109; RESP 9–40; TEMP 36.4–37; O2SAT 93–100
[2024-06-27] MEDS: hyDRALAzine 20 mg/mL INJ 1 mL 10 MG IVP ×2 (04:10→19:31)
[2024-06-27] MEDS: FUROsemide 10 mg/mL SDV 4mL 40 MG IVP ×2 (04:10→17:48)
[2024-06-27 04:20] LABS: Basophils # 0.1 10^3/uL (0.0-0.1); Basophils % 1.5 %; Eosinophils # 0.4 10^3/uL (0.0-0.8); Eosinophils % 5.1 %; Hematocrit 41.8 % (37-53); Lymphocytes # 2.1 10^3/uL (0.8-4.8); Lymphocytes % 25.4 %; Mean Corpuscular HGB Conc 31.8 g/dL (30-55); Mean Corpuscular Hemoglobin 30.9 pg (27-33); Mean Corpuscular Volume 97.2 fl (82-101); Mean Platelet Volume 11.1 fL (7.4-10.4); Monocytes # 1.1 10^3/uL (0.2-0.9); Monocytes % 13.4 %; Neutrophils # 4.56 10^3/uL (1.8-7.7); Neutrophils % 54.2 %; Nucleated Red Blood Cells % 0 %; Platelet Count 247 10^3/cmm (157-399); Red Cell Distribution Width 13.8 % (12.1-15.1); White Blood Count 8.42 10^3/uL (3.29-11.43)
[2024-06-27 04:46] LABS: Alanine Aminotransferase 28 U/L (0-41); Albumin Level 3.3 g/dL (3.5-5.2); Alkaline Phosphatase 80 U/L (40-130); Anion Gap 16.2 (5-19); Aspartate Amino Transferase 16 U/L (0-40); Blood Urea Nitrogen 17 mg/dL (6-20); Calcium 8.5 mg/dL (8.5-10.5); Carbon Dioxide 27 mmol/L (22-29); Chloride 96 mmol/L (98-107); Creatinine Clr Calc Pharmacy 108.2176; Globulin 2.9 g/dL (1.3-4.6); Glomerular Filtration Rate 67.1 mL/min (90-130); Glucose 75 mg/dL (65-115); Osmolality Calculated 280 mOsm/kg (285-295); Potassium 4.2 mmol/L (3.5-5.1); Sodium 135 mmol/L (136-145); Total Bilirubin 0.9 mg/dL (0.15-1.2); Total Protein 6.2 g/dL (6.6-8.7)
[2024-06-27 04:47] LABS: NT Pro B Type Natriuretic Pept 7766 pg/mL (0-125)
--- NOTE | 2024-06-27 07:56 | XACV_ITS ---
Exam Room: 2 Ht: 191 cm Wt: 107 kg BSA: 2.39 m2 Gender: Male : 1985 Any Known Allergies: No known allergies Exam Priority: Routine Procedure(s): Procedure Description: Diagnostic procedure Procedure Description: Left Heart Catheterization Procedure Description: Left ventriculography Procedure Description: Coronary Angiography Diagnostic Cath Status: Urgent Diagnostic Findings * INDICATION: LV dysfunction/ troponin elevation. * No disease noted in the Left Main, Right, or Circumflex coronary arteries. Mild proximal LAD 20-30% stenosis. * Coronary angiography shows right dominance. Conclusions 1. No disease noted in the Left Main, Right, or Circumflex coronary arteries. Mild proximal LAD 20-30% stenosis. 2. Moderate left ventricular systolic dysfunction. Ejection fraction of 30%. Recommendations * Guideline directed heart failure therapy. * Outpatient cardiology follow up in 2 weeks. Interventional RX Recommendation: medical therapy and/or counseling Diagnostic RX Recommendation: medical therapy and/or counseling Anticoagulation: Heparin Ventriculography Ejection Fraction: 30.0 % Pressures Phase:Rest AO : 135 / 107 ( 122 ) @ 8:34:00 AM 166 / 105 ( 131 ) @ 8:39:00 AM 165 / 103 ( 130 ) @ 8:39:00 AM LV : 175 / -2 / 24 @ 8:37:00 AM 177 / -7 / 28 @ 8:39:00 AM 177 / -7 / 29 @ 8:39:00 AM Valves Phase:DefaultPhase AV : 12.0 @ 8:44:18 AM AV Mean Gradient: 29.0 @ 8:44:18 AM Clinical Evaluation EBL: 5mL-10mL Procedural Details Procedure Consent Obtained. Pre-Procedure Time Out. Identified patient by full name and date of as verbalized by the patient/guarantor. Does the consent match the physician's order: Yes. Accurate & Complete Informed Consent: Yes. Inpatient/Outpatient History & Physical on Chart: Yes. If H&P is completed, is and addenduem needed: No. Visualize and Verify Site with Patient/Guarantor: N/A. Relevant Radiology Images available: Yes. The risks, benefits, and alternatives of sedation and/or procedure were discussed by physician. The patient agrees to continue. Procedure started. [facility] Clinical Fraility Score: 4: Vulnerable. Agile Qa Tester Indications: LV Dysfunction. Chest Pain Symptom Assessment: Atypical Angina. Cardiovascular Instability: No. Correct patient, site and procedure confirmed by cath team. PERRLA. Strong, equal hand intelligence officer bilaterally. Lungs clear x 5 lobes. IV Site on Arrival: 20 gauge in the left anticubital. IV Fluids: 0.9% NaCl at KVO. 0 mL infused prior to quality control lab technician. Pre Procedural Pulses: bilateral radial was 2+. Oxygen started at 2liters/min via nasal canula. right groin was prepped with chloroprep then draped in the usual sterile fashion. right radial was prepped with chloroprep then draped in the usual sterile fashion. Baseline sample Acquired. HR: 102 BPM. Physician notified. Patient's family unavailable.Patient gave Jailyn Nicole, , as the person to notify. Dr. Patricio will update at the completion of the procedure. Equipment: 6F - Radial. Cardiac Cath Pack. ACIST Manifold Kit Model BT 2000. Heparinized Saline (2 units/mL), 1000 mL bag. Physician arrived. Physician scrubbed in. Immediate Pre-Procedure Time Out. Correct Patient: Yes; Correct Procedure: Yes; Correct Site: Yes; Correct Patient Position: Yes; Correct Supplies: Yes; Dried Flammable Prep: Yes; Blood Products Available: N/A;. Lidocaine 1% infiltrated to the right radial. Arterial access obtained. A 5 tuvaluan TIG catheter in over the exchange J wire. Multiple views taken of left coronary artery. Catheter redirected to the RCA. Multiple views taken of right coronary artery. Catheter removed over the exchange J wire. A 6 tuvaluan Angled Pig catheter in over wire. EDP Sample taken: LV 175/-3,24; HR: 99 BPM; SpO2: 98%. LV gram performed in ARMENDARIZ @ 10 mL/second for a total of 30 mL. EDP Sample taken: LV 177/-8,28; HR: 98 BPM; SpO2: 99%. Pullback taken: LV 177/-8,29; AO 166/105(131); Mean: 29mmHg, Peak to Peak: 12mmHg, SEP: 8sec/min; HR: 98 BPM; SpO2: 99%. Catheter removed over the exchange J wire. Physician scrubbed out. A TR Band was successful obtaining hemostatsis at the Right Radial artery insertion site. Post Procedure: Pulses reassessed and unchanged. PERRLA. Strong, equal hand intelligence officer bilaterally. No VTE prophylaxis required. Medication's Wasted: Lidocaine 1% = 18 mL. Medication's Wasted: Nitro = 49.7 mg. Medication's Wasted: Heparin = 1000 units. Medication's Wasted: Other = Versed 2 mg. Medication's Wasted: Other = Fentanyl 25 mcg. Total IV fluids: 20 mL. 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 Complications: none. Estimated blood loss: 5mL-10mL. Responsiveness - Normal response to verbal stimuli; alert and oriented, PERRLA. Airway - Unaffected, no intervention required; spontaneous ventilation. Circulation: W/N/L, pulses unchanged. Nausea/Vomiting: No. Procedure completed. Patient transferred by bed to ICU. Vital chart was stopped. Access Site Site: Right Radial artery Sheath Size: 6 Fr Hemostasis Method: TR Band Hemostasis Success: Successful Procedure Medications Start: 8:19 AM Stop: 8:19 AM Medication: Aspirin Amount: 325 mg Route: P.O. Start: 8:20 AM Stop: 8:20 AM Medication: Versed Amount: 1 mg Route: I.V. Start: 8:20 AM Stop: 8:20 AM Medication: Fentanyl Amount: 50 mcg Route: I.V. Start: 8:22 AM Stop: 8: AM Medication: Benadryl Amount: 25 mg Route: I.V. Start: 8:29 AM Stop: 8: AM Medication: Fentanyl Amount: 25 mcg Route: I.V. Start: 8: AM Stop: 8:29 AM Medication: Versed Amount: 1 mg Route: I.V. Start: 8:30 AM Stop: 8:30 AM Medication: Nitrogylcerin Amount: 300 mcg Route: I.A. Start: 8:31 AM Stop: 8:31 AM Medication: Heparin Amount: 5000 units Route: I.V. I, the attending physician, have reviewed and verified all procedure medications. Yes, all medications given per verbal order History/Risk Factors Hypertension: Yes Dyslipidemia: No Peripheral Arterial Disease (PAD): No Myocardial Infarction (NM): No Obesity: No Renal Disease: No Tobacco Use: Current/Recent(w/in 1 year) Prior Interventions PCI: No CABG: No Valve Surgery: No Report Signatures Finalized by Bear Patricio MD on 07/09/2024 09:17 PM
--- NOTE | 2024-06-27 08:22 | W.PM.OPSUD ---
Surgery/Procedure H&P Update DATE OF PROCEDURE: June 27, 2024 DATE H&P PERFORMED: 06/25/24 H&P UPDATE INFORMATION: I have reviewed H&P completed within last 30 days, I have examined patient prior to procedure and No changes to prior documentation PREOP DIAGNOSIS: LV dysfunction/ troponin elevation PRIMARY INDICATION FOR PROCEDURE: LV dysfunction/ troponin elevation PLANNED PROCEDURE: Left heart cath with possible Percutaneous coronary intervention PATIENT REASSESSED PRIOR TO SEDATION, WITH NO CHANGE NOTED: Yes PHYSICAL EXAM: alert, oriented x 3, clear to auscultation bilaterally and regular rate & rhythm AIRWAY EVAL/ANESTHESIA PLAN: normal airway, ASA III, Local Anesthesia, Risks, benefits & alternatives of sedation and/or procedure discussed and Patient agrees to continue as planned ADDITIONAL INFORMATION: Moderate sedation
--- NOTE | 2024-06-27 08:42 | PM.PROC ---
Procedure Note: Date of procedure: 06/27/24 Pre-procedure diagnosis: LV dysfunction/troponin elevation Post-procedure diagnosis: other (Nonobstructive CAD/nonischemic cardiomyopathy) Procedure: Left heart cath: Left main artery is patent. Proximal LAD has mild 20% stenosis. RCA is patent. Left circumflex artery is patent. Nonischemic cardiomyopathy. Guideline directed medical therapy. Continue IV diuresis. Performing Provider: Bear Patricio Estimated blood loss (mL): 5 Complications: None Condition: stable Disposition: ICU Coding Level of Care Code Acute Code for Jack Early
--- NOTE | 2024-06-27 08:45 | P.PN_ITS ---
Subjective 2 Subjective: Patient had coronary angiogram today showing non-ischemic cardiomyopathy. No chest pain. Shortness of breath is improved. Vitals/I&O/Wt Last Vital Signs Temp 98.6 F 06/27/24 03:56 Pulse 101 H 06/27/24 06:00 Resp 19 H 06/27/24 06:00 BP 169/121 06/27/24 06:00 Pulse Ox 99 06/27/24 06:00 O2 Del Method Room Air 06/26/24 17:30 06/26/24 06/27/24 06/27/24 22:59 06:59 14:59 Intake Total 680 / 1840 300 / 2140 Output Total 3650 / 6750 1750 / 8500 Balance -2970 / -4910 -1450 / -6360 Weight last 48 hrs Weight 222 lb 10.67 oz Weight 235 lb 14.314 oz Weight 235 lb 14.314 oz Physical Exam 2 Const: COMMON NORMALS: no acute distress, patient oriented x3 and alert Resp: COMMON NORMALS: normal respiratory effort OTHER: Diminished air entry bilaterally Extremity: OTHER: 1+ edema bilaterally Neuro: COMMON NORMALS: patient oriented x3 SENSORIUM/ORIENTATION: Yes alert Data 06/27/24 02:37 06/27/24 02:37 Micro: Microbiology 06/25/24 05:00 Gram Stain - Final Sputum - Expectorated Sputum Sputum Culture - Preliminary A&P Assessment and plan (1) Hypertension: (2) Elevated brain natriuretic peptide (BNP) level: (3) Elevated troponin: (4) Hypertensive urgency: (5) Tobacco use disorder: (6) Alcohol use disorder: (7) Pulmonary edema: Plan Non-ischemic cardiomyopathy on angiogram. Guideline directed heart failure therapy. Continue IV diuresis. Monitor renal function and close I and Os Thank you for involving us with care of this patient. We will continue to follow. Please call with questions PDMP PDMP Reviewed: Not Reviewed Attestations 2 Medical Necessity Statement*: Care expected to cross 2 midnights. Coding Level of Care Code Acute Code for Chg Fwd Diagnoses Hypertension I10 Elevated brain natriuretic peptide (BNP) level R79.89 Elevated troponin R79.89 Hypertensive urgency I16.0 Tobacco use disorder F17.200 Alcohol use disorder F10.90 Pulmonary edema J81.1
[2024-06-27] MEDS: metoprolol tartrate 25 mg Tablet PO ×2 (09:07→20:47)
[2024-06-27] MEDS: multivitamin therapeutic Tablet 1 TAB PO (09:07)
[2024-06-27] MEDS: folic acid 1 mg Tablet PO (09:07)
[2024-06-27] MEDS: nicotine 21 mg Patch 1 PATCH TRANSDERMA (09:07)
[2024-06-27] MEDS: potassium chloride ER 20 mEq Tablet PO ×2 (09:07→17:48)
[2024-06-27] MEDS: thiamine 100 mg Tablet PO (09:07)
[2024-06-27] MEDS: aspirin 81 mg EC Tablet PO (09:07)
[2024-06-27] MEDS: losartan 50 mg Tablet PO (09:07)
--- NOTE | 2024-06-27 11:56 | PC.NURSE ---
pt transfered to [facility] at 1134. Report taken from JOSEPH Mcdonnell. Patient vitals WNL. Heart rate at 91, blood pressure is 149/94. O2 is at 95% on room air. TR band still in place, 10 ml air remains. No hematoma noted.
[2024-06-27] MEDS: morphine 4 mg/mL SDV 1 mL 2 MG IVP (13:06)
--- NOTE | 2024-06-27 15:26 | P.PN_ITS ---
Subjective 2 Subjective: Patient was seen this morning, status post coronary angiography, no obstructive CAD, likely nonischemic cardiomyopathy we discussed his alcohol cessation, cessation from drug use, cessation from smoking, he voices understanding, all questions answered, discussed watching his creatinine continue to diurese, he is agreeable Vitals/I&O/Wt Last Vital Signs Temp 97.9 F 06/27/24 15:03 Pulse 95 06/27/24 15:03 Resp 26 H 06/27/24 15:03 BP 156/107 06/27/24 15:03 Pulse Ox 96 06/27/24 15:03 O2 Del Method Room Air 06/27/24 15:03 06/27/24 06/27/24 06/27/24 06:59 14:59 22:59 Intake Total 300 / 2140 730 / 730 Output Total 1750 / 8500 1999 Balance -1450 / -6360 -1270 / -1270 Weight last 48 hrs Weight 101 kg Weight 107 kg Weight 107 kg Physical Exam 2 Const: COMMON NORMALS: no acute distress and patient oriented x3 Resp: COMMON NORMALS: normal respiratory effort, No retractions, No use of accessory muscles and clear to auscultation bilaterally AUSCULTATION: clear to auscultation bilaterally Cardio: COMMON NORMALS: regular rate, regular rhythm, S1 normal heart sound present and S2 normal heart sound present RATE: regular rate RHYTHM: r egular rhythm HEART SOUNDS: S1 normal heart sound present and S2 normal heart sound present GI: COMMON NORMALS: Normal to inspection, nondistended, normoactive bowel sounds present and non-tender Extremity: COMMON NORMALS: no pedal edema Neuro: COMMON NORMALS: patient oriented x3 Psych: COMMON NORMALS: mental status grossly normal Data 06/27/24 02:37 06/27/24 02:37 Micro: Microbiology 06/25/24 05:00 Gram Stain - Final Sputum - Expectorated Sputum Sputum Culture - Final A&P Assessment and plan (1) Elevated brain natriuretic peptide (BNP) level: Concerning for new onset heart failure, systolic CHF CONCLUSIONS Moderately increased left ventricular cavity size. Severely decreased left ventricular systolic function. Left ventricular ejection fraction is estimated at 35 %. Global left ventricular hypokinesis. Moderately increased right atrial size. Moderately increased left atrial size. Mildly thickened mitral valve. No mitral valve stenosis. Moderate mitral valve regurgitation. Mild aortic valve calcification. No aortic valve stenosis. Trace aortic valve regurgitation. Moderate tricuspid valve regurgitation. There is no pericardial effusion. Etiology unclear History of alcoholism History of methamphetamine abuse Possible ischemic cardiomyopathy With anasarca, ascites, pleural effusions, elevated BNP Lasix 40 mg IV Monitor creatinine, monitor potassium (2) Elevated troponin: Aspirin, statin Cardiology consulted Status post coronary angiography no evidence of obstructive CAD, likely nonischemic cardiomyopathy (3) Pulmonary edema: Secondary to new onset CHF (4) Tobacco use disorder: Patient encouraged to consider smoking cessation Nicotine patch ordered (5) Hypertension: Lisinopril 20 twice daily Metoprolol 25 twice daily (6) Alcohol use disorder: CIWA protocol (7) Hypertensive urgency: (8) Acute systolic CHF (congestive heart failure): Plan DVT prophylaxis: Lovenox CODE STATUS code: Full code PDMP PDMP Reviewed: Not Reviewed Attestations 2 Medical Necessity Statement*: Patient requires hospitalization for CHF requiring IV diuresis, nonischemic cardiomyopathy Diagnoses Elevated brain natriuretic peptide (BNP) level R79.89 Elevated troponin R79.89 Pulmonary edema J81.1 Tobacco use disorder F17.200 Hypertension I10 Alcohol use disorder F10.90 Hypertensive urgency I16.0 Acute systolic CHF (congestive heart failure) I50.21
--- NOTE | 2024-06-27 18:07 | PC.NURSE ---
PATIENT'S BLOOD PRESSURE WAS 172/107. HYDRALIZINE PULLED TO GIVE TO PATIENT TO LOWER BP. BY THE TIME THE NURSE GOT BACK TO THE ROOM, BLOOD PRESSURE WAS 149/97. NURSE RETURNED HYDRALIZINE.
[2024-06-27] MEDS: enoxaparin 40 mg/0.4 mL Syringe SUBCUT (20:47)
[2024-06-27] MEDS: atorvastatin 40 mg Tablet PO (20:47)
[2024-06-27] MEDS: diphenhydrAMINE 25 mg Capsule PO (22:18)
[2024-06-28] VITALS (13 sets, daily range): BP systolic 118–176; BP diastolic 73–128; PULSE 91–106; RESP 13–29; TEMP 36.6–36.9; O2SAT 96–100
[2024-06-28 04:23] LABS: Basophils # 0.2 10^3/uL (0.0-0.1); Basophils % 1.9 %; Eosinophils # 0.6 10^3/uL (0.0-0.8); Hematocrit 45.2 % (37-53); Lymphocytes # 1.9 10^3/uL (0.8-4.8); Lymphocytes % 24.2 %; Mean Corpuscular HGB Conc 32.1 g/dL (30-55); Mean Corpuscular Hemoglobin 30.8 pg (27-33); Mean Platelet Volume 9.6 fL (7.4-10.4); Monocytes # 1.2 10^3/uL (0.2-0.9); Monocytes % 14.6 %; Neutrophils # 4.13 10^3/uL (1.8-7.7); Neutrophils % 51.9 %; Nucleated Red Blood Cells % 0 %; Platelet Count 239 10^3/cmm (157-399); Red Blood Count 4.71 10^6/uL (3.85-5.65); Red Cell Distribution Width 13.6 % (12.1-15.1); White Blood Count 7.96 10^3/uL (3.29-11.43)
[2024-06-28 04:47] LABS: Alanine Aminotransferase 23 U/L (0-41); Albumin Level 3.4 g/dL (3.5-5.2); Alkaline Phosphatase 83 U/L (40-130); Anion Gap 16.6 (5-19); Aspartate Amino Transferase 15 U/L (0-40); Blood Urea Nitrogen 17 mg/dL (6-20); Calcium 8.9 mg/dL (8.5-10.5); Carbon Dioxide 25 mmol/L (22-29); Chloride 100 mmol/L (98-107); Creatinine Clr Calc Pharmacy 105.4398; Glomerular Filtration Rate 67.1 mL/min (90-130); Glucose 88 mg/dL (65-115); Osmolality Calculated 285 mOsm/kg (285-295); Potassium 4.6 mmol/L (3.5-5.1); Sodium 137 mmol/L (136-145); Total Protein 6.4 g/dL (6.6-8.7)
[2024-06-28 04:52] LABS: NT Pro B Type Natriuretic Pept 4849 pg/mL (0-125)
[2024-06-28] MEDS: FUROsemide 10 mg/mL SDV 4mL 40 MG IVP ×2 (05:14→16:12)
--- NOTE | 2024-06-28 07:24 | PC.NURSE ---
2148- Patient called in nurse for itching arm with small raised red bumps forming. Patient expresses he thinks he's allergic to a medication. Reviewed medication and let MD aware of situation. Recieved orders for benadryl 25 mg once. after an hour patient expresses relief from the itching.
[2024-06-28] MEDS: folic acid 1 mg Tablet PO (08:20)
[2024-06-28] MEDS: losartan 50 mg Tablet PO (08:20)
[2024-06-28] MEDS: aspirin 81 mg EC Tablet PO (08:20)
[2024-06-28] MEDS: multivitamin therapeutic Tablet 1 TAB PO (08:21)
[2024-06-28] MEDS: nicotine 21 mg Patch 1 PATCH TRANSDERMA (08:21)
[2024-06-28] MEDS: metoprolol tartrate 25 mg Tablet PO (08:21)
[2024-06-28] MEDS: potassium chloride ER 20 mEq Tablet PO ×2 (08:21→16:12)
[2024-06-28] MEDS: thiamine 100 mg Tablet PO (08:21)
[2024-06-28] MEDS: hyDRALAzine 20 mg/mL INJ 1 mL 10 MG IVP (08:23)
[2024-06-28] MEDS: chlorthalidone 25 mg Tablet PO (09:39)
--- NOTE | 2024-06-28 09:53 | P.PN_ITS ---
Subjective 2 Subjective: Patient doing well overall. He denies any orthopnea. Denies any chest pain. He was found to have nonischemic cardiomyopathy on left heart cath. Creatinine is stable at 1.2. He has had -476 5 L over 24 hours. Blood pressure is elevated at 167/122 on my assessment. Vitals/I&O/Wt Last Vital Signs Temp 98.4 F 06/28/24 07:14 Pulse 91 06/28/24 09:38 Resp 13 06/28/24 09:38 BP 123/75 06/28/24 09:38 Pulse Ox 99 06/28/24 09:38 O2 Del Method Room Air 06/28/24 09:38 06/27/24 06/28/24 06/28/24 22:59 06:59 14:59 Intake Total 880 / 1610 875 / 2485 716 / 716 Output Total 600 / 2600 2950 / 5550 2700 / 2700 Balance 280 / -990 -207 / -3065 -1983 / Weight last 48 hrs Weight 215 lb 9.6 oz Weight 222 lb 10.67 oz Physical Exam 2 Narrative: General: No apparent distress, healthy appearing, well nourished HENMT: normoceophalic Neck: No carotid bruit bilaterally Muskuloskeletal: Full ROM Respiratory: Normal respiratory effort, lung [place] clear throughout, no use of accessory muscles Cardio: No JVD, regular rate, regular rhythm, S1 S2 normal, no murmurs, peripheral pulses 2+ radial palpated bilaterally GI: abdomen less distended today Extremities: Full ROM, normal, normal capillary refill, no cyanosis or edema Neuro: Alert and oriented x4, no focal motor deficits Psych: Affect normal, denies suicidal ideation, mental status grossly normal Skin: No rashes or lesions noted, no wounds Data 06/28/24 04:11 06/28/24 04:11 Micro: Microbiology 06/25/24 05:00 Gram Stain - Final Sputum - Expectorated Sputum Sputum Culture - Final A&P Assessment and plan (1) Hypertension: (2) Elevated brain natriuretic peptide (BNP) level: (3) Elevated troponin: (4) Hypertensive urgency: (5) Tobacco use disorder: (6) Alcohol use disorder: (7) Pulmonary edema: Plan Patient has improved from a heart failure standpoint. Ejection fraction is 35%. At this time patient has refused a LifeVest. He does understand with an EF of 35% he is at risk of potentially lethal cardiac arrhythmias. He accepts this risk. At this time blood pressure has been elevated. Heart rate in the 90s. Will switch him from metoprolol to tartrate to carvedilol 12.5 twice daily and increase losartan to 100 mg daily. Continue Lasix 40 every 12. Continue to monitor creatinine. proBNP is down to 4765. PDMP PDMP Reviewed: Not Reviewed Attestations 2 Medical Necessity Statement*: Deferred to primary Coding Level of Care Code Acute Code for Chg Fwd Diagnoses Hypertension I10 Elevated brain natriuretic peptide (BNP) level R79.89 Elevated troponin R79.89 Hypertensive urgency I16.0 Tobacco use disorder F17.200 Alcohol use disorder F10.90 Pulmonary edema J81.1
--- NOTE | 2024-06-28 14:38 | P.PN_ITS ---
Vitals/I&O/Wt Last Vital Signs Temp 97.8 F 06/28/24 11:14 Pulse 100 06/28/24 11:14 Resp 17 06/28/24 11:14 BP 129/74 06/28/24 11:14 Pulse Ox 96 06/28/24 11:14 O2 Del Method Room Air 06/28/24 11:14 06/27/24 06/28/24 06/28/24 22:59 06:59 14:59 Intake Total 880 / 1610 875 / 2485 1196 / 1196 Output Total 600 / 2600 2950 / 5550 4150 / 4150 Balance 280 / -990 -2075 / -3065 -2954 / -2954 Weight last 48 hrs Weight 97.795 kg Weight 101 kg Physical Exam 2 Const: COMMON NORMALS: no acute distress and patient oriented x3 Resp: COMMON NORMALS: normal respiratory effort, No retractions, No use of accessory muscles and clear to auscultation bilaterally AUSCULTATION: clear to auscultation bilaterally Cardio: COMMON NORMALS: regular rate, regular rhythm, S1 normal heart sound present and S2 normal heart sound present RATE: regular rate RHYTHM: r egular rhythm HEART SOUNDS: S1 normal heart sound present and S2 normal heart sound present GI: COMMON NORMALS: Normal to inspection, nondistended, normoactive bowel sounds present and non-tender Extremity: COMMON NORMALS: no pedal edema Neuro: COMMON NORMALS: patient oriented x3 Psych: COMMON NORMALS: mental status grossly normal Data 06/28/24 04:11 06/28/24 04:11 Micro: Microbiology 06/25/24 05:00 Gram Stain - Final Sputum - Expectorated Sputum Sputum Culture - Final A&P Assessment and plan (1) Elevated brain natriuretic peptide (BNP) level: Concerning for new onset heart failure, systolic CHF CONCLUSIONS Moderately increased left ventricular cavity size. Severely decreased left ventricular systolic function. Left ventricular ejection fraction is estimated at 35 %. Global left ventricular hypokinesis. Moderately increased right atrial size. Moderately increased left atrial size. Mildly thickened mitral valve. No mitral valve stenosis. Moderate mitral valve regurgitation. Mild aortic valve calcification. No aortic valve stenosis. Trace aortic valve regurgitation. Moderate tricuspid valve regurgitation. There is no pericardial effusion. Etiology unclear History of alcoholism History of methamphetamine abuse Possible ischemic cardiomyopathy With anasarca, ascites, pleural effusions, elevated BNP Lasix 40 mg IV Monitor creatinine, monitor potassium (2) Elevated troponin: Aspirin, statin Cardiology consulted Status post coronary angiography no evidence of obstructive CAD, likely nonischemic cardiomyopathy (3) Pulmonary edema: Secondary to new onset CHF (4) Tobacco use disorder: Patient encouraged to consider smoking cessation Nicotine patch ordered (5) Hypertension: Lisinopril 20 twice daily Metoprolol 25 twice daily (6) Alcohol use disorder: CILA protocol (7) Hypertensive urgency: (8) Acute systolic CHF (congestive heart failure): Plan DVT prophylaxis: Lovenox CODE STATUS code: Full code Plan for today continue IV diuresis, patient is -17 L, watch creatinine, blood pressure control PDMP PDMP Reviewed: Not Reviewed Attestations 2 Medical Necessity Statement*: Patient requires hospitalization for acute CHF exacerbation requiring IV diuresis, Diagnoses Elevated brain natriuretic peptide (BNP) level R79.89 Elevated troponin R79.89 Pulmonary edema J81.1 Tobacco use disorder F17.200 Hypertension I10 Alcohol use disorder F10.90 Hypertensive urgency I16.0 Acute systolic CHF (congestive heart failure) I50.21
[2024-06-28] MEDS: hyDRALAzine 10 mg Tablet PO ×2 (15:59→21:34)
[2024-06-28] MEDS: carvedilol 12.5 mg Tablet PO (16:25)
[2024-06-28] MEDS: atorvastatin 40 mg Tablet PO (21:34)
[2024-06-28] MEDS: enoxaparin 40 mg/0.4 mL Syringe SUBCUT (21:34)
[2024-06-29] VITALS (7 sets, daily range): BP systolic 130–175; BP diastolic 69–111; PULSE 88–100; RESP 20–102; TEMP 36.4–36.8; O2SAT 96–100
[2024-06-29 03:14] LABS: Basophils # 0.1 10^3/uL (0.0-0.1); Basophils % 1.3 %; Eosinophils # 0.6 10^3/uL (0.0-0.8); Eosinophils % 6.9 %; Lymphocytes # 2.1 10^3/uL (0.8-4.8); Lymphocytes % 24.5 %; Mean Corpuscular HGB Conc 32.3 g/dL (30-55); Mean Corpuscular Hemoglobin 29.7 pg (27-33); Mean Corpuscular Volume 91.8 fl (82-101); Mean Platelet Volume 10.2 fL (7.4-10.4); Monocytes # 1.2 10^3/uL (0.2-0.9); Monocytes % 14.1 %; Neutrophils # 4.47 10^3/uL (1.8-7.7); Neutrophils % 52.8 %; Nucleated Red Blood Cells % 0 %; Platelet Count 282 10^3/cmm (157-399); Red Blood Count 5.12 10^6/uL (3.85-5.65); Red Cell Distribution Width 13.2 % (12.1-15.1); White Blood Count 8.45 10^3/uL (3.29-11.43)
[2024-06-29 03:54] LABS: Anion Gap 16.4 (5-19); Blood Urea Nitrogen 31 mg/dL (6-20); Calcium 8.8 mg/dL (8.5-10.5); Carbon Dioxide 24 mmol/L (22-29); Chloride 95 mmol/L (98-107); Creatinine Clr Calc Pharmacy 89.1052; Glomerular Filtration Rate 56.1 mL/min (90-130); Glucose 93 mg/dL (65-115); NT Pro B Type Natriuretic Pept 2468 pg/mL (0-125); Osmolality Calculated 278 mOsm/kg (285-295); Potassium 4.4 mmol/L (3.5-5.1); Sodium 131 mmol/L (136-145)
[2024-06-29] MEDS: hyDRALAzine 20 mg/mL INJ 1 mL 10 MG IVP (05:57)
[2024-06-29] MEDS: carvedilol 12.5 mg Tablet PO (09:38)
[2024-06-29] MEDS: chlorthalidone 25 mg Tablet PO (09:38)
[2024-06-29] MEDS: aspirin 81 mg EC Tablet PO (09:38)
[2024-06-29] MEDS: thiamine 100 mg Tablet PO (09:38)
[2024-06-29] MEDS: multivitamin therapeutic Tablet 1 TAB PO (09:38)
[2024-06-29] MEDS: potassium chloride ER 20 mEq Tablet PO (09:38)
[2024-06-29] MEDS: folic acid 1 mg Tablet PO (09:38)
[2024-06-29] MEDS: losartan 50 mg Tablet 100 MG PO (09:38)
[2024-06-29] MEDS: nicotine 21 mg Patch 1 PATCH TRANSDERMA (09:39)
--- NOTE | 2024-06-29 09:40 | P.PN_ITS ---
<Statement entered by Bear Patricio M.D - 06/29/24 21:34> Patient was evaluated and cared for in conjunction with an advanced practice practitioner. I personally examined the patient and reviewed the chart and all pertinent data including imaging, telemetry, and laboratory results. I discussed the patient in detail with the advanced practice practitioner. Please see their note for complete progress note, results and agreed upon plan of care for the patient. Patient feeling better. Shortness of breath has resolved. Patient's creatinine has trended up. Can switch to PO lasix. Uptitrate antihypertensive medications. Patient is stable to be discharged from cardiology standpoint. GENERAL: Patient is alert and oriented HEART: Regular S1 and S2 LUNGS: Clear to auscultation bilaterally EXTREMITIES: Lower extremities with no edema Subjective 2 Subjective: Patient is doing well overall without complaints. Creatinine has slightly increased to 1.4. Labs are stable. Blood pressure has been elevated. Heart rate has been elevated as well up to 106. BP up to the 160s at times. Vitals/I&O/Wt Last Vital Signs Temp 97.8 F 06/29/24 08:06 Pulse 92 06/29/24 08:06 Resp 23 H 06/29/24 08:06 BP 148/95 06/29/24 08:06 Pulse Ox 96 06/29/24 08:06 O2 Del Method Room Air 06/29/24 08:06 06/28/24 06/29/24 06/29/24 22:59 06:59 14:59 Intake Total 1120 / 2316 800 / 3116 120 / 120 Output Total 2500 / 6650 1500 / 8150 Balance -1380 / -4334 -700 / -5034 120 / 120 Weight last 48 hrs Weight 213 lb 9.6 oz Weight 215 lb 9.6 oz Physical Exam 2 Narrative: General: No apparent distress, healthy appearing, well nourished HENMT: normoceophalic Muskuloskeletal: Full ROM Respiratory: Normal respiratory effort, lung [place] clear throughout, no use of accessory muscles Cardio: No JVD, regular rate, regular rhythm, S1 S2 normal, no murmurs, peripheral pulses 2+ radial palpated bilaterally GI: abdomen less distended today Extremities: Full ROM, normal, normal capillary refill, no cyanosis or edema Neuro: Alert and oriented x4, no focal motor deficits Psych: Affect normal, denies suicidal ideation, mental status grossly normal Skin: bilateral groin puncture sites clean, dry, intact, w/o s/s of hematoma Data 06/29/24 02:52 06/29/24 02:52 A&P Assessment and plan (1) Hypertension: (2) Elevated brain natriuretic peptide (BNP) level: (3) Elevated troponin: (4) Hypertensive urgency: (5) Tobacco use disorder: (6) Alcohol use disorder: (7) Pulmonary edema: Plan Patient has improved from a heart failure standpoint may be discharged with f/u in 1 week with us. Ejection fraction is 35%. At this time patient has refused a LifeVest. HR and BP has been elevated. Recommend increasing carvedilol to 25 mg BID. Continue Lasix 40 PO Q12 with potassium. Continue to monitor creatinine. We will recheck this in the clinic. PDMP PDMP Reviewed: Not Reviewed Attestations 2 Medical Necessity Statement*: Patient ok to be discharged from cardiology standpoint. Coding Level of Care Code Acute Code for [facility] Fwd Diagnoses Hypertension I10 Elevated brain natriuretic peptide (BNP) level R79.89 Elevated troponin R79.89 Hypertensive urgency I16.0 Tobacco use disorder F17.200 Alcohol use disorder F10.90 Pulmonary edema J81.1
[2024-06-29] MEDS: hyDRALAzine 10 mg Tablet PO (09:45)
--- NOTE | 2024-06-29 10:35 | P.DS_ITS ---
Discharge Providers Date of Admission: 06/25/24 00:59 Date of Discharge: June 29, 2024 Attending Provider at Admission: Edson Fonseca MD Attending Provider at Discharge: Jun Izaguirre MD Primary Care Provider: Sabra Arriola Diagnoses at Discharge Discharge Diagnosis (1) Hypertension: Status: Acute (2) Elevated brain natriuretic peptide (BNP) level: Status: Acute (3) Elevated troponin: Status: Acute (4) Hypertensive urgency: Status: Acute (5) Tobacco use disorder: Status: Acute (6) Alcohol use disorder: Status: Acute (7) Pulmonary edema: Status: Acute Reason for Visit Reason for Visit: Chf Hypertension Emergency Hospital Course Hospital Course This is a 38-year-old male with a past medical history of hypertension who presents [facility] for shortness of breath Patient was admitted to [facility] for hypertensive urgency, required titration of his blood pressure medications, will be discharged on Coreg 25 mg twice daily, losartan 100 mg daily, chlorthalidone 25 mg daily, with hydralazine 10 mg twice daily with a close follow-up with primary care and cardiology as outpatient For his acute systolic CHF exacerbation, echocardiogram showed EF down to 35% received IV diuresis during his hospitalization diuresed over 20 L negative. Will be discharged on Lasix 40 mg daily with potassium placement therapy with a close follow-up with cardiology and primary care to recheck kidney function and potassium in 1 week For his elevated troponins, cardiology was consulted, underwent coronary angiography no clinically significant obstructive CAD seen, likely nonischemic cardiomyopathy secondary to hypertension, alcoholism, drug use. Patient was advised to abstain from smoking, I had a detailed discussion with him about smoking cessation counseling, morbidity and mortality associated, he voiced understanding to all questions answered Patient was advised to quit drinking alcohol, discussed morbidity mortality associated with alcohol consumption, risk associate with his heart failure, he voiced understanding all questions answered Had a detailed discussion with him about his drug use, discussed abstaining from any drug use, discussed morbidity and mortality, he voiced understanding, all questions answered Physical Exam Const: COMMON NORMALS: no acute distress and patient oriented x3 Resp: COMMON NORMALS: normal respiratory effort, No retractions, No use of acc essory muscles and clear to auscultation bilaterally AUSCULTATION: clear to auscultation bilaterally Cardio: COMMON NORMALS: regular rate, regular rhythm, S1 normal heart sound present and S2 normal heart sound present RATE: regular rate RHYTHM: regular rhythm HEART SOUNDS: S1 normal heart sound present and S2 normal heart sound present GI: COMMON NORMALS: Normal to inspection, nondistended, normoactive bowel sounds present and non-tender Extremity: COMMON NORMALS: no pedal edema Neuro: COMMON NORMALS: patient oriented x3 Psych: COMMON NORMALS: mental status grossly normal Discharge Data Studies Completed and Pending Completed Studies During Hospitalization Category Date Time Status XR chest 1V portable [id number] Routine Exams 06/25/24 01:21 Completed CV. echo complete* [id number] Routine Ultrasound 06/25/24 01:21 Completed Pending at discharge Category Date Time Status [employer]AN OUT [employer] request for service Routine Exams 06/27/24 07:56 Taken A1C [Hemoglobin A1C] Stat Lab 06/29/24 10:31 Ordered Basic Metabolic Panel AM LABS Lab 06/30/24 04:00 Ordered Basic Metabolic Panel AM LABS Lab 07/01/24 04:00 Ordered Complete Blood Count w/Auto AM LABS Lab 06/30/24 04:00 Ordered Complete Blood Count w/Auto AM LABS Lab 07/01/24 04:00 Ordered Lipid Panel Stat Lab 06/29/24 10:31 Ordered NT Pro B Type Natriuretic Pept QAM Lab 06/30/24 06:00 Ordered NT Pro B Type Natriuretic Pept QAM Lab 07/01/24 06:00 Ordered Radiology Impressions Chest X-Ray 06/25/24 01:21 IMPRESSION: Multifocal pneumonia favored over CHF. Laboratory Results WBC 8.45 10^3/uL (3.29-11.43) 06/29/24 02:52 RBC 5.12 10^6/uL (3.85-5.65) 06/29/24 02:52 Hgb 15.20 g/dL (11.27-16.99) 06/29/24 02:52 Hct 47.0 % (37-53) 06/29/24 02:52 MCV 91.8 fl (82-101) 06/29/24 02:52 MCH 29.7 pg (27-33) 06/29/24 02:52 MCHC 32.3 g/dL (30-55) 06/29/24 02:52 RDW 13.2 % (12.1-15.1) 06/29/24 02:52 Plt Count 282 10^3/cmm (157-399) 06/29/24 02:52 MPV 10.2 fL (7.4-10.4) 06/29/24 02:52 Neut % (Auto) 52.8 % 06/29/24 02:52 Lymph % (Auto) 24.5 % 06/29/24 02:52 [place] % (Auto) 14.1 % 06/29/24 02:52 Eos % (Auto) 6.9 % 06/29/24 02:52 Baso % (Auto) 1.3 % 06/29/24 02:52 Neut # (Auto) 4.47 10^3/uL (1.8-7.7) 06/29/24 02:52 Lymph # (Auto) 2.1 10^3/uL (0.8-4.8) 06/29/24 02:52 [place] # (Auto) 1.2 10^3/uL (0.2-0.9) H 06/29/24 02:52 Eos # (Auto) 0.6 10^3/uL (0.0-0.8) 06/29/24 02:52 Baso # (Auto) 0.1 10^3/uL (0.0-0.1) 06/29/24 02:52 Nucleated RBC % (auto) 0 % 06/29/24 02:52 Nucleated RBCs # 0.0 /100WBC 06/29/24 02:52 Sodium 131 mmol/L (136-145) L 06/29/24 02:52 Potassium 4.4 mmol/L (3.5-5.1) 06/29/24 02:52 Chloride 95 mmol/L (98-107) L 06/29/24 02:52 Carbon Dioxide 24 mmol/L (22-29) 06/29/24 02:52 Anion Gap 16.4 (5-19) 06/29/24 02:52 BUN 31 mg/dL (6-20) H 06/29/24 02:52 Creatinine 1.4 mg/dL (0.7-1.2) H 06/29/24 02:52 GFR Calculation 56.1 mL/min (90-130) L 06/29/24 02:52 Glucose 93 mg/dL (65-115) 06/29/24 02:52 Calculated Osmolality 278 mOsm/kg (285-295) L 06/29/24 02:52 Calcium 8.8 mg/dL (8.5-10.5) 06/29/24 02:52 Phosphorus 4.1 mg/dL (2.5-4.5) 06/25/24 01:39 Magnesium 2.1 mg/dL (1.7-2.3) 06/25/24 01:39 Total Bilirubin 1.0 mg/dL (0.15-1.2) 06/28/24 04:11 AST 15 U/L (0-40) 06/28/24 04:11 ALT 23 U/L (0-41) 06/28/24 04:11 Alkaline Phosphatase 83 U/L (40-130) 06/28/24 04:11 Troponin T 5th Gen ng/L 69 ng/L (0-15) H 06/25/24 01:39 Troponin T Baseline 63 ng/L (0-15) H 06/25/24 10:34 Troponin T 120 Minute 61.52 ng/L (0-15) H 06/25/24 13:03 Delta Troponin T -1.48 ABS# (0-10) L 06/25/24 13:03 Troponin T Hi Sens 6Hr 65.14 ng/L (0-15) H 06/25/24 16:21 Troponin T Hi Sens 6Hr Delta 2.14 ng/L (0-12) 06/25/24 16:21 C-Reactive Protein 4.8 mg/L (0.0-4.9) 06/25/24 01:39 NT-Pro-B Natriuret Pep 2468 pg/mL (0-125) H 06/29/24 02:52 Total Protein 6.4 g/dL (6.6-8.7) L 06/28/24 04:11 Albumin 3.4 g/dL (3.5-5.2) L 06/28/24 04:11 Globulin 3.0 g/dL (1.3-4.6) 06/28/24 04:11 Procalcitonin 0.08 ng/mL (0-0.5) 06/25/24 01:39 TSH 4.13 uIU/mL (0.27-4.20) 06/25/24 01:39 Urine Color Yellow (Yellow) 06/25/24 02:30 Urine Appearance Clear (CLEAR) 06/25/24 02:30 Urine pH 6.5 (5-7) 06/25/24 02:30 Ur Specific [place] 1.031 (1.005-1.030) H 06/25/24 02:30 Urine Protein 2+ (Negative) A 06/25/24 02:30 Urine Glucose (UA) Negative (Normal) 06/25/24 02:30 Urine Ketones Negative (Negative) 06/25/24 02:30 Urine Blood Negative (Negative) 06/25/24 02:30 Urine Nitrate Negative (Negative) 06/25/24 02:30 Urine Bilirubin Negative (Negative) 06/25/24 02:30 Urine Urobilinogen 1.0 mg/dL (Negative) 06/25/24 02:30 Ur Leukocyte Esterase Negative (Negative) 06/25/24 02:30 Urine RBC 0-2 /hpf (0-2) 06/25/24 02:30 Urine WBC 0-5 /hpf (0-5) 06/25/24 02:30 Ur Squamous Epith Cells 0-5 /hpf (0-5) 06/25/24 02:30 Amorphous Sediment Not Reportable 06/25/24 02:30 Urine Bacteria None seen /hpf (NONE) 06/25/24 02:30 Hyaline Casts 3.71 /lpf 06/25/24 02:30 Urine Opiates Screen Negative ng/mL (Negative) 06/25/24 02:30 Ur Barbiturates Screen Negative ng/mL (Negative) 06/25/24 02:30 Ur Phencyclidine Scrn Negative ng/mL (Negative) 06/25/24 02:30 Ur Amphetamines Screen Negative ng/mL (Negative) 06/25/24 02:30 U Benzodiazepines Scrn Negative ng/mL (Negative) 06/25/24 02:30 Urine Cocaine Screen Negative ng/mL (Negative) 06/25/24 02:30 U Marijuana (THC) Screen Negative ng/mL (Negative) 06/25/24 02:30 Vitals Last Vital Signs Temp 97.8 F 06/29/24 08:06 Pulse 92 06/29/24 08:06 Resp 23 H 06/29/24 08:06 BP 149/95 06/29/24 09:38 Pulse Ox 96 06/29/24 08:06 O2 Del Method Room Air 06/29/24 08:06 Discharge Plan Discharge Patient Disposition: Home Condition: Stable Prescriptions: New multivitamin with folic acid [Thera] 400 mcg Tablet 1 tab PO DAILY 30 Days Qty: 30 0RF thiamine mononitrate (vit B1) [Vitamin B-1 (mononitrate)] 100 mg Tablet 100 mg PO DAILY 30 Days Qty: 30 0RF potassium chloride [Klor-Con M20] 20 mEq Tablet,Er Particles/Crystals 20 meq PO DAILY 30 Days Qty: 30 0RF carvedilol 25 mg tablet 25 mg PO BID 30 Days Qty: 60 0RF losartan 100 mg tablet 100 mg PO DAILY 30 Days Qty: 30 0RF hydralazine 10 mg Tablet 10 mg PO BID 30 Days Qty: 60 0RF furosemide [Lasix] 40 mg tablet 40 mg PO DAILY 30 Days Qty: 30 0RF chlorthalidone 25 mg Tablet 25 mg PO DAILY 30 Days Qty: 30 0RF Discontinued lisinopril 20 mg tablet 40 mg PO DAILY Discharge Orders: Discharge Order (Routine); Ordered 06/29/24 Ordered By: Jun Izaguirre Referrals: Sabra Arriola [Primary Care Provider] - 1-3 days Xochitl Paul FNP [Nurse Practitioner] - 7-10 days Discharge Diet: Cardiac Discharge Activity: Resume usual activity Patient Instructions: How to Stop Smoking (DC), Cigarette Smoking and Your Health (GEN), Abuse of Alcohol (ED), Opioid Safety Activity Restrictions/Additional Instructions: - Please abstain from smoking -Please abstain from alcohol consumption -He is abstain from drug use -Take blood pressure medications as prescribed -Take Lasix with potassium as prescribed -If you have chest pain or shortness of breath or lightheadedness please come back to the emergency room Discharge Attestations Time Spent in Discharge Care*: greater than 30 min Quality Metrics Clinical Quality Measures [ No reported AMI, CVA or VTE this stay] Coding Level of Care Code 79037 Total time (in minutes) for Discharge: 45 Diagnoses Hypertension I10 Elevated brain natriuretic peptide (BNP) level R79.89 Elevated troponin R79.89 Hypertensive urgency I16.0 Tobacco use disorder F17.200 Alcohol use disorder F10.90 Pulmonary edema J81.1
[2024-06-29 10:56] LABS: Estmated Average Glucose 105; Hemoglobin A1C 5.3 % (4.0-6.0)
[2024-06-29 10:59] LABS: Chol HDL Ratio 2.14 mg/dL (1.0-5.00); Cholesterol 141 mg/dL (0-200); HDL Cholesterol 66 mg/dL (60-100); LDL Cholesterol Calculated 62 mg/dL (50-129); LDL HDL Ratio 0.94 RATIO (0.00-3.22); Triglycerides 63 mg/dL (0-150)
--- NOTE | 2024-06-29 13:19 | PC.NURSE ---
discharge papers provided,meds to bed delivery. educated pt on chf stoplight, bp check twice daily at home and importance of med compliance.
== END 2024-06-29 13:18 | disposition home or self-care (01) | DRG 286 ==
LOC: ICU 06-27 09:10 → CSU 06-27 11:43
PROVIDERS: Internal Medicine; Admitting Provider Internal Medicine; PCP Registered Nurse; Visit Provider Family Medicine
PROC: 4A023N7 Measurement of Cardiac Sampling and Pressure, Left Heart, Percutaneous Approach (ICD-10-PCS; principal; 2024-06-27 08:30)
DX: I11.0 Hypertensive heart disease with heart failure (principal); I50.21 Acute systolic (congestive) heart failure; R18.8 Other ascites; F17.200 Nicotine dependence, unspecified, uncomplicated; R00.0 Tachycardia, unspecified; F10.20 Alcohol dependence, uncomplicated; I16.0 Hypertensive urgency; I25.10 Atherosclerotic heart disease of native coronary artery without angina pectoris; I42.8 Other cardiomyopathies; I08.1 Rheumatic disorders of both mitral and tricuspid valves; Z79.899 Other long term (current) drug therapy; Z82.49 Family history of ischemic heart disease and other diseases of the circulatory system; Z53.29 Procedure and treatment not carried out because of patient's decision for other reasons; Z71.6 Tobacco abuse counseling
CPT/HCPCS: 36415; 71045; 80048; 80053; 80061; 80306; 81001; 83036; 83735; 83880; 84100; 84145; 84443; 84484; 85025; 86140; 86403; 87070; 87205; 93005; 93306; 93458; 96372; 96374; 96375; 96376; 99152; 99153; C1769; C1887; C1894; J0360; J1200; J1644; J1650; J1940; J2250; J2270; J3010; J3411; J3490; J7030; Q9967